=== PATIENT | male | born 1970 | race Caucasian/White ===

== ENCOUNTER → 2018-08-11 | Outpatient (REF) | payer OTHER ==
[2018-08-11 16:46] LABS: HEMATOCRIT 47.8 % (42.0-52.0); HEMOGLOBIN 15.8 g/dl (13.5-17.5); MEAN CORPUSCULAR HEMOGLOBIN 31.7 pg (27.0-33.0); MEAN CORPUSCULAR HGB CONC 33.1 g/dl (32.0-36.5); PLATELET COUNT, AUTOMATED 379 10^3/uL (150-450); RED BLOOD COUNT 4.98 10^6/uL (4.30-6.10)
[2018-08-11 16:57] LABS: ALBUMIN 4.4 GM/DL (3.2-5.2); ALT/SGPT 21 U/L (12-78); BILIRUBIN,TOTAL 0.4 MG/DL (0.2-1.0); BLOOD UREA NITROGEN 11 MG/DL (7-18); CALCIUM LEVEL 9.6 MG/DL (8.5-10.1); CARBON DIOXIDE LEVEL 30 MEQ/L (21-32); CHLORIDE LEVEL 104 MEQ/L (98-107); CHOLESTEROL LEVEL 254 MG/DL (<200); CHOLESTEROL RISK RATIO 6.047 (<5); CREATININE FOR GFR 1.24 MG/DL (0.70-1.30); GLOMERULAR FILTRATION RATE > 60.0 (>60); GLUCOSE, FASTING 86 MG/DL (70-100); HDL CHOLESTEROL 42 MG/DL (>40); LDL CHOLESTEROL 189 MG/DL (<100); NON-HDL-C 212 MG/DL; POTASSIUM SERUM 4.4 MEQ/L (3.5-5.1); SODIUM LEVEL 139 MEQ/L (136-145); THYROID STIMULATING HORMONE 0.652 uIU/ML (0.358-3.740); TOTAL PROTEIN 7.8 GM/DL (6.4-8.2); TRIGLYCERIDES LEVEL 117 MG/DL (<150)
[2018-08-11 16:58] LABS: TOTAL 25(OH) VITAMIN D 24.1 NG/ML (30.0-100.0)
== END ==
LOC: M SFHCCLAY 11:50
PROVIDERS: ATTEND Nurse Practitioner Family
DX: F32.9 Major depressive disorder, single episode, unspecified (principal); Z13.6 Encounter for screening for cardiovascular disorders

== ENCOUNTER → 2019-05-15 | Outpatient (REF) | payer OTHER ==
[2019-05-15 17:14] LABS: HEMATOCRIT 45.9 % (42.0-52.0); HEMOGLOBIN 15.3 g/dl (13.5-17.5); MEAN CORPUSCULAR HEMOGLOBIN 31.7 pg (27.0-33.0); MEAN CORPUSCULAR HGB CONC 33.3 g/dl (32.0-36.5); MEAN CORPUSCULAR VOLUME 95.2 fl (80.0-96.0); PLATELET COUNT, AUTOMATED 355 10^3/uL (150-450); RED BLOOD COUNT 4.82 10^6/uL (4.30-6.10); WHITE BLOOD COUNT 9.5 10^3/uL (4.0-10.0)
[2019-05-15 17:19] LABS: ALBUMIN 4.4 GM/DL (3.2-5.2); ALT/SGPT 23 U/L (12-78); BILIRUBIN,TOTAL 0.2 MG/DL (0.2-1.0); BLOOD UREA NITROGEN 12 MG/DL (7-18); CALCIUM LEVEL 9.8 MG/DL (8.5-10.1); CARBON DIOXIDE LEVEL 30 MEQ/L (21-32); CHLORIDE LEVEL 104 MEQ/L (98-107); CREATININE FOR GFR 1.14 MG/DL (0.70-1.30); GLOMERULAR FILTRATION RATE > 60.0 (>60); GLUCOSE, FASTING 80 MG/DL (70-100); POTASSIUM SERUM 4.3 MEQ/L (3.5-5.1); SODIUM LEVEL 137 MEQ/L (136-145); TOTAL 25(OH) VITAMIN D 19.9 NG/ML (30.0-100.0); TOTAL PROTEIN 8.3 GM/DL (6.4-8.2)
== END ==
LOC: M SFHCCLAY 10:15
PROVIDERS: ATTEND Nurse Practitioner Family
DX: K21.9 Gastro-esophageal reflux disease without esophagitis (principal); F41.9 Anxiety disorder, unspecified; E55.9 Vitamin D deficiency, unspecified
CPT/HCPCS: 80053; 82306; 84443; 85027; G0463

== ENCOUNTER → 2019-05-15 | Outpatient (CLI) | payer OTHER ==
--- NOTE | 2019-05-15 11:11 | REP ---
Chest x-ray: Two views. History: Weight loss . Comparison study: No comparison study . Findings: The lungs are well inflated and free of infiltrate. The pleural angles are sharp. The heart size is normal. Pulmonary vasculature is not increased. No significant bony abnormality is seen. Impression: Negative chest x-ray. Electronically Signed by Kevin Sanches MD 05/15/2019 11:03 A
== END ==
LOC: M CLY 10:38
PROVIDERS: ATTEND Nurse Practitioner Family
DX: R63.4 Abnormal weight loss (principal)

== ENCOUNTER → 2019-07-22 | Outpatient (CLI) | payer OTHER ==
[~2019-07-22] MED LIST: D200CAP2 PO; FLOM0.4C39 PO; OMEP40CA97 PO
== END ==
LOC: M LABSMTC 08:54
PROVIDERS: ATTEND Anesthesiology
DX: Z01.812 Encounter for preprocedural laboratory examination (principal); Z11.59 Encounter for screening for other viral diseases

== ENCOUNTER 2019-07-25 11:18 | Day surgery (SDC) | payer OTHER ==
[~2019-07-25] VITALS: Ht 170.2 cm; Wt 60.2 kg
[~2019-07-25 11:18] MED LIST changes: +NS 1,000 ML IV ONE
[2019-07-25] MEDS ORDERED: propofoL 200 MG/20 ML VIAL As Ordered ONE ×2 (12:45→14:07)
[2019-07-25] MEDS ORDERED: fentaNYL 100 MCG/2 ML INJECTION (J3010) As Ordered ONE (12:45)
[2019-07-25] MEDS ORDERED: LIDOCAINE 2% 100MG/5ML SDV (FOR ANES.) As Ordered ONE (12:45)
--- NOTE | 2019-07-25 14:12 | ROOR ---
Patient Name: Roel Jarrell Procedure Date: 07/25/2019 1:32 PM Date of : 1970 Age: 49 Room: [facility] Gender: Male Note Status: Finalized Procedure: Upper GI endoscopy Indications: Weight loss Providers: DO Martin Hernandez MD: Deborah Squires NP Requesting Provider: Medicines: Propofol per Anesthesia Complications: No immediate complications. Procedure: Pre-Anesthesia Assessment: - Prior to the procedure, a History and Physical was performed, and patient medications and allergies were reviewed. The patient is competent. The risks and benefits of the procedure and the sedation options and risks were discussed with the patient. All questions were answered and informed consent was obtained. Patient identification and proposed procedure were verified by the physician, the nurse, the coordinator hotels and the mobile home technician in the endoscopy suite. Mental Status Examination: alert and oriented. Airway Examination: normal oropharyngeal airway and neck mobility. Respiratory Examination: clear to auscultation. CV Examination: normal. Prophylactic Antibiotics: The patient does not require prophylactic antibiotics. Prior Anticoagulants: The patient has taken no previous anticoagulant or antiplatelet agents. ASA Grade Assessment: II - A patient with mild systemic disease. After reviewing the risks and benefits, the patient was deemed in satisfactory condition to undergo the procedure. The anesthesia plan was to use monitored anesthesia care (MAC). Immediately prior to administration of medications, the patient was re-assessed for adequacy to receive sedatives. The heart rate, respiratory rate, oxygen saturations, blood pressure, adequacy of pulmonary ventilation, and response to care were monitored throughout the procedure. The physical status of the patient was re-assessed after the procedure. The Endoscope was introduced through the mouth, and advanced to the second part of duodenum. The upper GI endoscopy was accomplished without difficulty. The patient tolerated the procedure well. Findings: The exam was otherwise without abnormality. Impression: - The examination was otherwise normal. - No specimens collected. Recommendation: - Patient has a contact number available for emergencies. The signs and symptoms of potential delayed complications were discussed with the patient. Return to normal activities tomorrow. Written discharge instructions were provided to the patient. - Return to my office PRN. Dany Solano DO 07/25/2019 2:12:43 PM Electronically signed by Dany Solano DO Number of Addenda: 0 Note Initiated On: 07/25/2019 1:32 PM Estimated Blood Loss: Estimated blood loss: none.
--- NOTE | 2019-07-25 14:16 | ROOR ---
Patient Name: Roel Jarrell Procedure Date: 07/25/2019 1:32 PM Date of : 1970 Age: 49 Room: [facility] Gender: Male Note Status: Finalized Procedure: Colonoscopy Indications: Weight loss Providers: DO Martin Hernandez MD: Deborah Squires NP Requesting Provider: Medicines: Propofol per Anesthesia Complications: No immediate complications. Procedure: Pre-Anesthesia Assessment: - Prior to the procedure, a History and Physical was performed, and patient medications and allergies were reviewed. The patient is competent. The risks and benefits of the procedure and the sedation options and risks were discussed with the patient. All questions were answered and informed consent was obtained. Patient identification and proposed procedure were verified by the physician, the nurse, the embalmer assistant and the pyrotechnician in the endoscopy suite. Mental Status Examination: alert and oriented. Airway Examination: normal oropharyngeal airway and neck mobility. Respiratory Examination: clear to auscultation. CV Examination: normal. Prophylactic Antibiotics: The patient does not require prophylactic antibiotics. Prior Anticoagulants: The patient has taken no previous anticoagulant or antiplatelet agents. ASA Grade Assessment: II - A patient with mild systemic disease. After reviewing the risks and benefits, the patient was deemed in satisfactory condition to undergo the procedure. The anesthesia plan was to use monitored anesthesia care (MAC). Immediately prior to administration of medications, the patient was re-assessed for adequacy to receive sedatives. The heart rate, respiratory rate, oxygen saturations, blood pressure, adequacy of pulmonary ventilation, and response to care were monitored throughout the procedure. The physical status of the patient was re-assessed after the procedure. The Colonoscope was introduced through the anus and advanced to the cecum, identified by appendiceal orifice and ileocecal valve. The colonoscopy was performed without difficulty. The patient tolerated the procedure well. Findings: Multiple medium-mouthed diverticula were found in the sigmoid colon. A 20 mm polyp was found in the sigmoid colon. The polyp was pedunculated. The polyp was removed with a hot snare. Resection and retrieval were complete. Estimated blood loss was minimal. The exam was otherwise without abnormality. Impression: - Diverticulosis in the sigmoid colon. - One 20 mm polyp in the sigmoid colon, removed with a hot snare. Resected and retrieved. - The examination was otherwise normal. Recommendation: - Patient has a contact number available for emergencies. The signs and symptoms of potential delayed complications were discussed with the patient. Return to normal activities tomorrow. Written discharge instructions were provided to the patient. - Repeat colonoscopy in 3 - 5 years for surveillance based on pathology results. - Return to my office at appointment to be scheduled. - Await pathology results. Dany Solano DO 07/25/2019 2:15:44 PM Electronically signed by Dany Solano DO Number of Addenda: 0 Note Initiated On: 07/25/2019 1:32 PM Estimated Blood Loss: Estimated blood loss was minimal.
[2019-07-25 14:45] VITALS: BP 130/77
== END 2019-07-25 15:00 | disposition home or self-care (01) ==
LOC: M OPP 11:18
PROVIDERS: ATTEND Surgery
DX: K63.5 Polyp of colon (principal); K57.30 Diverticulosis of large intestine without perforation or abscess without bleeding; R63.4 Abnormal weight loss; F17.210 Nicotine dependence, cigarettes, uncomplicated; Z79.899 Other long term (current) drug therapy; Z88.8 Allergy status to other drugs, medicaments and biological substances
CPT/HCPCS: 43235; 45385; 88305; J3010

== ENCOUNTER 2020-04-10 07:35 | Emergency (ER) | payer OTHER ==
[~2020-04-10] VITALS: Ht 167.6 cm; Wt 65.9 kg
[~2020-04-10 07:35] MED LIST changes: -NS 1,000 ML IV ONE
--- OUTSIDE RECORDS SUMMARY | 2020-04-10 07:40 | CCD ---
Author Author [facility] Syst ems Organization [facility] ems Address Unknown Phone Unavailable Care Team Providers Care [employer] Director Name Role Phone Raul Joe Unavailable PROBLEMS Type Condition ICD9-CM Code [id number] Code Onset Dates Condition S tatus SNOMED Code Notes Problem Sleep apnea, unspecified type G47.30 Active 73 899222 Problem Enlarged prostate N40.0 Active 213766034 Problem Gastroesophageal reflux disease, esophagitis pre sence not specified K21.9 Active 137689012 Problem Urinary frequency R35.0 Active 425189229 Problem Hyperlipidemia, unspecified E78.5 Active 3705 50612 Problem Depression, unspecified depression type F32.9 Active 40512032 Problem Smoker F17.200 Active 29818761 Problem Erectile dysfunction, unspecified erectile dysfunction typ e N52.9 Active 631362543 Problem Panic attacks F41.0 Active 035468356 Problem Anxiety F41.9 Active 24729487 Problem Vitamin D deficiency E55.9 Active 96332566 Problem Mixed hyperlipidemia E78.2 Active 300685087 ALLERGIES Allergen (clinical drug ingredient) Drug/Non Drug Allergy do cumented on EMR Reaction Allergy Type Onset Date Status varenicline Chantix(NDC Code:[address]-34) increased anxiety Drug Al lergy Active Wellbutrin increased anxiety Drug Allergy Activ e sertraline Zoloft(NDC Code:[address]-88) incrased sadness Drug Aller gy Active ENCOUNTERS from 1970 to 2020-03-28 Encounter Location Date Provider Diagnosis [address] [address] Feb Joe Carter Anxiety F41.9 IMMUNIZATIONS No Information SOCIAL HISTORY Tobacco Use: Social History Observation Description Date Details (start date - stop date) Current Smoker Sex Assigned At : Social History Observation Description Sex Assigned At Unknown Audit Question Answer Notes Total Score: 1 Interpretation: Alcohol Education Drug and Alcohol Question Answer Notes Total Score: 1 Interpretation: Low level Tobacco Use: Question Answer Notes Are you a: current smoker Patient counseled on the dangers of tobacco use and urged to quit: 01/04/2020 How many cigarettes a day do you smoke? 11-20 Are you interested in quitting? Ready to quit Counseled the patient on tobacco use, cessation provided 07/2019 REASON FOR REFERRAL No Information VITAL SIGNS No information MEDICATIONS Medication SIG (Take, Route, Frequency, Duration) Notes Start Da te End Date Status Xanax 0.25 MG 1-2tablet Orally four times daily as nee ded, MDD=8 for 10 day(s) Apr, Active Drisdol 1.25 MG (17610 UT) 1 capsule Orally weekly May, Active Omeprazole 40 MG 1 capsule 30 minutes before morning meal Orally Once a day for 90 Active Wellbutrin SR 100 MG 1 tablet in the morning Orally bid for 30 d ay(s) Dec, Active Viagra 100 mG 1 tablet as needed Orally 1 hour before intercou rse Jul, Active Flomax 0.4 MG 1 capsule 30 minutes after t he same meal each day Orally Once a day for 90 Active Cialis 20 MG 1 tablet Orally as directed June, Active PROCEDURES No Information RESULTS No Results REASON FOR VISIT Refill MEDICAL (GENERAL) HISTORY Type Description Date Medical History Hyperlipidemia Medical History PTSD Medical History depression Medical History panic attacks Medical History anxiety Medical History sleep apnea on CPAP from the [place] Medical History GERD Medical History and hiatal hernia Medical History history of gastric ulcers at age 23 Medical History enlarged prostate, [place] urology Surgical History Vasectomy around 5 years ago Surgical History Right shoulder reconstruction surgery Hospitalization History No know Hospitalization history Goals Section No Information Health Concerns No Information MEDICAL EQUIPMENT No Information MENTAL STATUS No Information FUNCTIONAL STATUS No Information ASSESSMENTS Encounter Date Diagnosis Assessment Notes Treatment Notes Treatm ent Clinical Notes Feb, Anxiety (ICD-10 - F41.9) PLAN OF TREATMENT Medication Medication Name Sig Start Date Stop Date Xanax 0.25 MG 1-2tablet Orally four times daily as nee ded, MDD=8 for 10 day(s) Apr, Viagra 100 mG 1 tablet as needed Orally 1 hour before intercou rse Jul, Flomax 0.4 MG 1 capsule 30 minutes after t he same meal each day Orally Once a day for 90 Wellbutrin SR 100 MG 1 tablet in the morning Orally bid for 30 day(s) Dec, Drisdol 1.25 MG (00046 UT) 1 capsule Orally weekly May, Omeprazole 40 MG 1 capsule 30 minutes before morning meal Orally Once a day for 90 Cialis 20 MG 1 tablet Orally as directed June, Insurance Providers Payer Name Payer Address Payer Phone Insured Name Patient Relati onship to Insured Coverage Start Date Coverage End Date [facility] [employer] [address] [address] [place] [address] YOANA BOYD
--- OUTSIDE RECORDS SUMMARY | 2020-04-10 07:40 | CCD ---
Author Author [facility] Syst ems Organization [facility] ems Address Unknown Phone Unavailable Care Team Providers Care Neuropsychology Director Name Role Phone ShawToddja Unavailable PROBLEMS Type Condition ICD9-CM Code [id number] Code Onset Dates Condition S tatus SNOMED Code Notes Problem Sleep apnea, unspecified type G47.30 Active 73 603671 Problem Enlarged prostate N40.0 Active 421082689 Problem Gastroesophageal reflux disease, esophagitis pre sence not specified K21.9 Active 205743667 Problem Urinary frequency R35.0 Active 120763731 Problem Hyperlipidemia, unspecified E78.5 Active 3705 7635575 Problem Depression, unspecified depression type F32.9 Active 41315273 Problem Smoker F17.200 Active 70431521 Problem Erectile dysfunction, unspecified erectile dysfunction typ e N52.9 Active 232785636 Problem Panic attacks F41.0 Active 273890530 Problem Anxiety F41.9 Active 48500167 Problem Vitamin D deficiency E55.9 Active 10483658 Problem Mixed hyperlipidemia E78.2 Active 117921468 ALLERGIES Allergen (clinical drug ingredient) Drug/Non Drug Allergy do cumented on EMR Reaction Allergy Type Onset Date Status varenicline Chantix(ND Code:[address]-22) increased anxiety Drug Al lergy Active Wellbutrin increased anxiety Drug Allergy Activ e sertraline Zoloft(ND Code:[address]-75) incrased sadness Drug Aller gy Active ENCOUNTERS from 1970 to 2020-01-20 Encounter Location Date Provider Diagnosis [facility] [address] [place] [address] Dec Deborah Squires Depression, unspecified depression type F32.9 ; Anxiety F41.9 ; Panic attacks F41.0 ; Gastroesophageal reflux disease, esophagitis presence not specified K21.9 ; Vitamin D deficiency E55.9 ; Hyperlipidemia, unspecified E78.5 and Smoker F17.200 IMMUNIZATIONS No Information SOCIAL HISTORY Tobacco Use: [...] many cigarettes a day do you smoke? 11- Are you interested in quitting? Ready to quit Counseled the patient on tobacco use, cessation provided 07/2019 REASON FOR REFERRAL No Information VITAL SIGNS Weight 141 lbs Dec, Height 5'7" in Dec, BMI 22.08 kg/m2 Dec, Heart Rate 76 /min Dec, Respiratory Rate 20 /min Dec, Temperature 97.8 degrees Fahrenheit Dec, Oximetry 98%ra Dec, Blood pressure systolic 117 mm Hg Dec, Blood pressure diastolic 75 mm Hg Dec, MEDICATIONS Medication SIG (Take, Route, Frequency, Duration) Notes Start Da te End Date Status Flomax 0.4 MG 1 capsule 30 minutes after t he same meal each day Orally Once a day Jul, Active Omeprazole 40 MG 1 capsule 30 minutes before morning meal Orally Once a day Apr, Active Drisdol 1.25 MG (25076 UT) 1 capsule Orally weekly May, Active Wellbutrin SR 100 MG 1 tablet in the morning Orally bid for 30 d ay(s) Dec, Active Viagra 100 mG 1 tablet as needed Orally 1 hour before intercou rse Jul, Active Xanax 0.25 MG 1-2tablet Orally four times daily as nee ded, MDD=8 for 10 day(s) Apr, Active Cialis 20 MG 1 tablet Orally as directed June, Active PROCEDURES No Information RESULTS No Results REASON FOR VISIT 6 MONTH CK UP MEDICAL (GENERAL) HISTORY Type Description Date Medical History Hyperlipidemia Medical History PTSD Medical History depression Medical History panic attacks Medical History anxiety Medical History sleep apnea on CPAP from the [place] Medical History GERD Medical History and hiatal hernia Medical History history of gastric ulcers at age 23 Medical History enlarged prostate, [place] urology Surgical History Vasectomy around 5 years ago Surgical History Right shoulder reconstruction surgery Hospitalization History No know Hospitalization history Goals Section No Information Health Concerns No Information MEDICAL EQUIPMENT No Information MENTAL STATUS No Information FUNCTIONAL STATUS No Information ASSESSMENTS Encounter Date Diagnosis Assessment Notes Treatment Notes Treatm ent Clinical Notes Dec, Depression, unspecified depression type (ICD-10 - F32.9) Dec, Anxiety (ICD-10 - F41.9) Dec, Panic attacks (ICD-10 - F41.0) Dec, Gastroesophageal reflux dise ase, esophagitis presence not specified (ICD-10 - K21.9) Dec, Vitamin D deficiency (ICD-10 - E55.9) Dec, Hyperlipidemia, unspecified (ICD-10 - E78.5) Dec, Smoker (ICD-10 - F17.200) Dec, Other Treatment options discussed with patient., pt provided with info on admin and side effects of meds prescribed and verbalized understanding of same. Reference #: [id number] PLAN OF TREATMENT Medication Medication Name Sig Start Date Stop Date Flomax 0.4 MG 1 capsule 30 minutes after t he same meal each day Orally Once a day Jul, Viagra 100 mG 1 tablet as needed Orally 1 hour before intercou rse Jul, Xanax 0.25 MG 1-2tablet Orally four times daily as nee ded, MDD=8 for 10 day(s) Apr, Wellbutrin SR 100 MG 1 tablet in the morning Orally bid for 30 day(s) Dec, Omeprazole 40 MG 1 capsule 30 minutes before morning meal Orally Once a day Apr, Drisdol 1.25 MG (43345 UT) 1 capsule Orally weekly May, Cialis 20 MG 1 tablet Orally as directed June, Next Appt Details 4 Weeks, 6 Weeks Reason: Provider Name:Deborah Squires, 2020-03-05 04:00:00 PM, [address] [place], [place], [address], Insurance Providers Payer Name Payer Address Payer Phone Insured Name Patient Relati onship to Insured Coverage Start Date Coverage End Date [facility] [address] [facility] [id number] YOANA BOYD
--- OUTSIDE RECORDS SUMMARY | 2020-04-10 07:40 | CCD ---
Author Author [facility] Syst ems Organization [facility] ems Address Unknown Phone Unavailable Care Team Providers Care Director Of Business Systems Name Role Phone Shaw Deborah Unavailable PROBLEMS Type Condition ICD9-CM Code [id number] Code Onset Dates Condition S tatus SNOMED Code Notes Problem Sleep apnea, unspecified type G47.30 Active 73 679607 Problem Enlarged prostate N40.0 Active 649875294 Problem Gastroesophageal reflux disease, esophagitis pre sence not specified K21.9 Active 667105230 Problem Urinary frequency R35.0 Active 214252125 Problem Hyperlipidemia, unspecified E78.5 Active 3708 03305 Problem Depression, unspecified depression type F32.9 Active 84933411 Problem Smoker F17.200 Active 93240148 Problem Erectile dysfunction, unspecified erectile dysfunction typ e N52.9 Active 120629202 Problem Panic attacks F41.0 Active 284119716 Problem Anxiety F41.9 Active 56718039 Problem Vitamin D deficiency E55.9 Active 85736535 Problem Mixed hyperlipidemia E78.2 Active 668331029 ALLERGIES Allergen (clinical drug ingredient) Drug/Non Drug Allergy do cumented on EMR Reaction Allergy Type Onset Date Status varenicline Chantix(ND Code:[address]-18) increased anxiety Drug Al lergy Active Wellbutrin increased anxiety Drug Allergy Activ e sertraline Zoloft(ND Code:[address]-34) incrased sadness Drug Aller gy Active ENCOUNTERS from 1970 to 2020-03-28 Encounter Location Date Provider Diagnosis [facility] [address] [place] [address] Feb Deborah Squires IMMUNIZATIONS No Information SOCIAL HISTORY Tobacco Use: [...] 10 day(s) Apr, Active Drisdol 1.25 MG (98242 UT) 1 capsule Orally weekly May, Active [...] History sleep apnea on CPAP from the [place] Medical History GERD Medical History and hiatal hernia Medical History history of gastric ulcers at age 23 Medical History enlarged prostate, [place] urology Surgical History Vasectomy around 5 years ago Surgical History Right shoulder reconstruction surgery Hospitalization History No know Hospitalization history Goals Section No Information Health Concerns No Information MEDICAL EQUIPMENT No Information MENTAL STATUS No Information FUNCTIONAL STATUS No Information ASSESSMENTS No Information PLAN OF TREATMENT Medication Medication Name Sig [...] for 30 day(s) Dec, Drisdol 1.25 MG (68081 UT) 1 capsule Orally weekly May, Omeprazole 40 MG 1 capsule 30 minutes before morning meal Orally Once a day for 90 Cialis 20 MG 1 tablet Orally as directed June, Insurance Providers Payer Name Payer Address Payer Phone Insured Name Patient Relati onship to Insured Coverage Start Date Coverage End Date [facility] [address] [facility] [id number] YOANA BOYD
--- OUTSIDE RECORDS SUMMARY | 2020-04-10 07:40 | CCD ---
Author Author [facility] Syst ems Organization [facility] ems Address Unknown Phone Unavailable Care Team Providers Care Hitting Coach Name Role Phone ShawToddja Unavailable PROBLEMS Type Condition ICD9-CM Code [id number] Code Onset Dates Condition S tatus SNOMED Code Notes Problem Sleep apnea, unspecified type G47.30 Active 73 017037 Problem Enlarged prostate N40.0 Active 878363429 Problem Gastroesophageal reflux disease, esophagitis pre sence not specified K21.9 Active 549089119 Problem Urinary frequency R35.0 Active 019102415 Problem Hyperlipidemia, unspecified E78.5 Active 3707 34063 Problem Depression, unspecified depression type F32.9 Active 22566749 Problem Smoker F17.200 Active 45001706 Problem Erectile dysfunction, unspecified erectile dysfunction typ e N52.9 Active 344186925 Problem Panic attacks F41.0 Active 417429866 Problem Anxiety F41.9 Active 30120362 Problem Vitamin D deficiency E55.9 Active 38091917 Problem Mixed hyperlipidemia E78.2 Active 156173101 ALLERGIES Allergen (clinical drug ingredient) Drug/Non Drug Allergy do cumented on EMR Reaction Allergy Type Onset Date Status varenicline Chantix(ND Code:[address]-96) increased anxiety Drug Al lergy Active Wellbutrin increased anxiety Drug Allergy Activ e sertraline Zoloft(ND Code:[address]-27) incrased sadness Drug Aller gy Active ENCOUNTERS from 1970 to 2020-02-27 Encounter Location Date Provider Diagnosis [facility] [address] [place] [address] Jan Deborah Squires Anxiety F41.9 IMMUNIZATIONS No Information SOCIAL HISTORY [...] Notes Start Da te End Date Status Wellbutrin SR 100 MG 1 tablet in the morning Orally bid for 30 d ay(s) Dec, Active Cialis 20 MG 1 tablet Orally as directed June, Active Drisdol 1.25 MG (17861 UT) 1 capsule Orally weekly May, Active Flomax 0.4 MG 1 capsule 30 minutes after t he same meal each day Orally Once a day for 90 Active Viagra 100 mG 1 tablet as needed Orally 1 hour before intercou rse Jul, Active Omeprazole 40 MG 1 capsule 30 minutes before morning meal Orally Once a day for 90 Active Xanax 0.25 MG 1-2tablet Orally four times daily as nee ded, MDD=8 for 10 day(s) Apr, Active PROCEDURES No Information RESULTS No Results REASON FOR VISIT Good Morning. MEDICAL (GENERAL) HISTORY Type Description Date Medical History Hyperlipidemia Medical History PTSD Medical History depression Medical History panic attacks Medical History anxiety Medical History sleep apnea on CPAP from the [place] Medical History GERD Medical History and hiatal hernia Medical History history of gastric ulcers at age 23 Medical History enlarged prostate, [place] urology Surgical History Vasectomy around 5 years ago Surgical History Right shoulder reconstruction surgery Hospitalization History No know Hospitalization history Goals Section No Information Health Concerns No Information MEDICAL EQUIPMENT No Information MENTAL STATUS No Information FUNCTIONAL STATUS No Information ASSESSMENTS Encounter Date Diagnosis Assessment Notes Treatment Notes Treatm ent Clinical Notes Jan, Anxiety (ICD-10 - F41.9) PLAN OF TREATMENT Medication Medication Name Sig Start Date Stop Date Wellbutrin SR 100 MG 1 tablet in the morning Orally bid for 30 day(s) Dec, Viagra 100 mG 1 tablet as needed Orally 1 hour before intercou rse Jul, Omeprazole 40 MG 1 capsule 30 minutes before morning meal Orally Once a day for 90 Flomax 0.4 MG 1 capsule 30 minutes after t he same meal each day Orally Once a day for 90 Cialis 20 MG 1 tablet Orally as directed June, Drisdol 1.25 MG (23128 UT) 1 capsule Orally weekly May, Xanax 0.25 MG 1-2tablet Orally four times daily as nee ded, MDD=8 for 10 day(s) Apr, Next Appt Details Provider Name:Deborah Parra Shaw, 2020-03-05 04:00:00 PM, [address] , [place], [address], Insurance Providers Payer Name Payer Address Payer Phone Insured Name Patient Relati onship to Insured Coverage Start Date Coverage End Date [facility] [address] [place] [id number] YOANA BOYD
--- OUTSIDE RECORDS SUMMARY | 2020-04-10 07:40 | CCD ---
Author Author 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 Name Role Phone Shaw Deborah Unavailable PROBLEMS Type Condition ICD9-CM Code SMS44-ER Code Onset Dates Condition S tatus SNOMED Code Notes Problem Sleep apnea, unspecified type G47.30 Active 73 029160 Problem Enlarged prostate N40.0 Active 083545971 Problem Gastroesophageal reflux disease, esophagitis pre sence not specified K21.9 Active 447543997 Problem Urinary frequency R35.0 Active 839338538 Problem Hyperlipidemia, unspecified E78.5 Active 3706 99107 Problem Depression, unspecified depression type F32.9 Active 93003030 Problem Smoker F17.200 Active 59206686 Problem Erectile dysfunction, unspecified erectile dysfunction typ e N52.9 Active 348745532 Problem Panic attacks F41.0 Active 630333464 Problem Anxiety F41.9 Active 76604730 Problem Vitamin D deficiency E55.9 Active 28963551 Problem Mixed hyperlipidemia E78.2 Active 774692379 ALLERGIES Allergen (clinical drug ingredient) Drug/Non Drug Allergy do cumented on EMR Reaction Allergy Type Onset Date Status varenicline Chantix(NDC Code:[address]-77) increased anxiety Drug Al lergy Active Wellbutrin increased anxiety Drug Allergy Activ e sertraline Zoloft(ND Code:[address]-75) incrased sadness Drug Aller gy Active ENCOUNTERS from 1970 to 2020-03-04 Encounter Location Date Provider Diagnosis [facility] [address] [place] [address] Feb Deborah Squires IMMUNIZATIONS No Information SOCIAL [...] as directed June, Active Drisdol 1.25 MG (55585 UT) 1 capsule Orally weekly May, Active [...] Information RESULTS No Results REASON FOR VISIT 05 March Appointment. MEDICAL (GENERAL) HISTORY Type Description Date Medical History Hyperlipidemia Medical History PTSD Medical History depression Medical History panic attacks Medical History anxiety Medical History sleep ap[place] Medical History GERD Medical History and hiatal hernia Medical History history of gastric ulcers at age 23 Medical History enlarged prostate, [place] [facility] Surgical History Vasectomy around 5 years [...] Orally as directed June, Drisdol 1.25 MG (02498 UT) 1 capsule Orally weekly May, Xanax 0.25 MG 1-2tablet Orally four times daily as nee ded, MDD=8 for 10 day(s) Apr, Insurance Providers Payer Name Payer Address Payer Phone Insured Name Patient Relati onship to Insured Coverage Start Date Coverage End Date [facility] [id number] [facility] [id number] [place] BOYD self
--- OUTSIDE RECORDS SUMMARY | 2020-04-10 07:40 | CCD ---
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 Name Role Phone Indra SMITH Unavailable Unavailable Indra SMITH PA Unavailable Unavailable LUISIndra DOTY PA Unavailable Unavailable LUISIndra DOTY PA Unavailable Unavailable Indra SMITH PA Unavailable Unavailable Indra SMITH PA Unavailable Unavailable Indra SMITH PA Unavailable Unavailable Indra SMITH PA Unavailable Unavailable Indra SMITH PA Unavailable Unavailable LUISIndra DOTY PA Unavailable Unavailable LUISIndra DOTY PA Unavailable Unavailable DENY, GARCIA PA Unavailable Unavailable DENY, GARCIA PA Unavailable Unavailable DENY, GARCIA PA Unavailable Unavailable DENY, GARCIA PA Unavailable Unavailable DENY, GARCIA PA Unavailable Unavailable DENY, GARCIA PA Unavailable Unavailable DENY, GARCIA PA Unavailable Unavailable DENY, GARCIA PA Unavailable Unavailable DENY, GARCIA PA Unavailable Unavailable DENY, GARCIA PA Unavailable Unavailable DENY, GARCIA PA Unavailable Unavailable DENY, GARCIA PA Unavailable Unavailable DENY, GARCIA PA Unavailable Unavailable DENY, GARCIA PA Unavailable Unavailable DENY, GARCIA PA Unavailable Unavailable Re-disclosure Warning The records that you are about to access may contain information from federally-assisted alcohol or drug abuse programs. If such information is present, then the following federally mandated warning applies: This information has been disclosed to you from records protected by federal confidentiality rules (42 CFR part 2). The federal rules prohibit you from making any further disclosure of this information unless further disclosure is expressly permitted by the written consent of the person to whom it pertains or as otherwise permitted by 42 CFR part 2. A general authorization for the release of medical or other information is NOT sufficient for this purpose. The Federal rules restrict any use of the information to criminally investigate or prosecute any alcohol or drug abuse patient.The records that you are about to access may contain highly sensitive health information, the redisclosure of which is protected by Article 27-F of the [facility] Public Health law. If you continue you may have access to information: Regarding HIV / AIDS; Provided by facilities licensed or operated by the [facility] Office of Mental Health; or Provided by the [facility] Office for People With Developmental Disabilities. If such information is present, then the following [facility] mandated warning applies: This information has been disclosed to you from confidential records which are protected by state law. State law prohibits you from making any further disclosure of this information without the specific written consent of the person to whom it pertains, or as otherwise permitted by law. Any unauthorized further disclosure in violation of state law may result in a fine or detention sentence or both. A general authorization for the release of medical or other information is NOT sufficient authorization for further disc losure. Allergies and Adverse Reactions Type Description Substance Reaction Status Data Source(s ) Drug allergy Zoloft Sertraline incrased sadness Active eCW1 ([facility]) Drug allergy Chantix varenicline increased anxiety Active eCW 1 ([facility]) Wellbutrin Wellbutrin Wellbutrin increased anxiety Active eCW1 ( [facility]) Wellbutrin Wellbutrin Wellbutrin increased anxiety Active eCW1 ( [facility]) Wellbutrin Wellbutrin Wellbutrin increased anxiety Active eCW1 ( [facility]) Encounters Encounter Providers Location Date Indications Data Source(s ) Emergency Attender: GARCIA BARCLAY MS [facility] 04/10/2020 05:59:00 AM EST - 04/10/2020 05:59:00 AM EST [facility] [place] [address] [facility] [address] 03/28/2020 12:00:00 AM EST eCW1 ([facility]) [place] [address] [address] 03/28/2020 12:00:00 AM EST eCW1 ([facility]) [place] [address] [facility] [address] 03/03/2020 12:00:00 AM EST eCW1 ([facility] [place] [address] [facility] [address] 02/27/2020 12:00:00 AM EST eCW1 ([facility]) [place] [address] [facility] [address] 01/04/2020 12:00:00 AM EST eCW1 ([facility]) [place] [address] [facility] [address] 11/20/2019 12:00:00 AM EDT eCW1 ([facility]) [place] [address] [facility] [address] 08/02/2019 12:00:00 AM EDT eCW1 ([facility]) [facility] [address] [facility] [address] 07/04/2019 12:00:00 AM EDT [facility]CW1 [facility] Outpatient Referrer: ANNE-MARIE GARZA 06/09/2019 07:15:00 AM EDT [facility] [address] [facility] [address] 06/06/2019 12:00:00 AM EDT eCW1 ([facility]) [facility] [address] [facility] [address] 06/06/2019 12:00:00 AM EDT eCW1 ([facility]) [facility] [address] [address] 05/30/2019 12:00:00 AM EDT eCW1 ([facility]) [address] [address] 05/29/2019 12:00:00 AM EDT eCW1 ([facility]) [address] [address] 05/29/2019 12:00:00 AM EDT eCW1 ([facility]) [facility] [address] [place] [address], [place] [address] 05/16/2019 12:00:00 AM EDT eCW1 ([facility]) [address] [address] 05/15/2019 12:00:00 AM EDT eCW1 ([facility]) Medications Medication Brand Name Start Date Product Form Dose Route Admi nistrative Instructions Pharmacy Instructions Status Indications Reaction Description Data Source(s) Alprazolam 0.25 MG Oral Tablet ALPRAZOLAM 03/28/2020 12:00:00 AM EST tablet 80 TAKE ONE TO TWO TABLETS BY MOUTH FOUR TIMES A DAY N EEDED MAX=8TABS/DAY TAKE ONE TO TWO TABLETS BY MOUTH FOUR TIMES A DAY NEEDED MAX=8TABS/DAY SOLD: 03/31/2020 [facility] Alprazolam 0.25 MG Oral Tablet ALPRAZOLAM 02/27/2020 12:00:00 AM EST tablet 80 TAKE 1-2 TABLETS BY MOUTH FOUR TIMES A DAY NEEDED M AX=8TABS/DAY TAKE 1-2 TABLETS BY MOUTH FOUR TIMES A DAY NEEDED MAX=8TABS/DAY SOLD: 03/03/2020 [facility] 40 mg 02/03/2020 12:00:00 AM EST capsule,delayed release (DR/EC) 90 TAKE ONE CAPSULE BY MOUTH EVERY MORNING 30 MINUTES BEFORE EATING TAKE ONE CAPSULE BY MOUTH EVERY MORNING 30 MINUTES BEFORE EATING SOLD: 03/03/2020 [facility] 0.4 mg 02/03/2020 12:00:00 AM EST capsule 90 TAKE ONE CAPSULE BY MOUTH EVERY DAY 30 MINUTES AFTER THE SME MEAL EACH DAY TAKE ONE CAPSULE BY MOUTH EVERY DAY 30 MINUTES AFTER THE SME MEAL EACH DAY SOLD: 03/03/2020 [facility] 100 mg 01/04/2020 12:00:00 AM EST tablet sustained-releas e 12 hr 60 TAKE ONE TABLET BY MOUTH TWICE A DAY TAKE ONE TABLET BY MOUTH TWICE A DAY SOLD: 01/05/2020 [facility] 20 mg 01/04/2020 12:00:00 AM EST tablet 10 TAKE ONE TABLET BY MOUTH DIRECTED TAKE ONE TABLET BY MOUTH DIRECTED SOLD: 02/02/2020 [facility] 12 HR Bupropion Hydrochloride 100 MG Ext ended Release Oral Tablet [Wellbutrin] Wellbutrin SR 100 MG Wellbutrin SR 100 MG 01/04/2020 12:00:00 AM EST 1.0 {tablet_in_the_morning} active Wellbutr in SR 100 MG eCW1 ([facility]) 20 mg 01/04/2020 12:00:00 AM EST tablet 10 TAKE ONE TABLET BY MOUTH DIRECTED TAKE ONE TABLET BY MOUTH DIRECTED SOLD: 01/05/2020 [facility] 12 HR Bupropion Hydrochloride 100 MG Ext ended Release Oral Tablet [Wellbutrin] Wellbutrin SR 100 MG Wellbutrin SR 100 MG 01/04/2020 12:00:00 AM EST 1.0 {tablet_in_the_morning} active Wellbutr in SR 100 MG eCW1 ([facility]) 12 HR Bupropion Hydrochloride 100 MG Ext ended Release Oral Tablet [Wellbutrin] Wellbutrin SR 100 MG Wellbutrin SR 100 MG 01/04/2020 12:00:00 AM EST 1.0 {tablet_in_the_morning} active Wellbutr in SR 100 MG eCW1 ([facility]) Alprazolam 0.25 MG Oral Tablet ALPRAZOLAM 01/04/2020 12:00:00 AM EST tablet 80 TAKE ONE TO TWO TABLETS BY MOUTH FOUR TIMES A DAY N EEDED MAX=8TABS/DAY TAKE ONE TO TWO TABLETS BY MOUTH FOUR TIMES A DAY NEEDED MAX=8TABS/DAY SOLD: 01/05/2020 [facility] 20 mg 01/04/2020 12:00:00 AM EST tablet 10 TAKE ONE TABLET BY MOUTH DIRECTED TAKE ONE TABLET BY MOUTH DIRECTED SOLD: 03/19/2020 [facility] 12 HR Bupropion Hydrochloride 100 MG Ext ended Release Oral Tablet [Wellbutrin] Wellbutrin SR 100 MG Wellbutrin SR 100 MG 01/04/2020 12:00:00 AM EST 1.0 {tablet_in_the_morning} active Wellbutr in SR 100 MG eCW1 ([facility]) 12 HR Bupropion Hydrochloride 100 MG Ext ended Release Oral Tablet [Wellbutrin] Wellbutrin SR 100 MG Wellbutrin SR 100 MG 01/04/2020 12:00:00 AM EST 1.0 {tablet_in_the_morning} active Wellbutr in SR 100 MG eCW1 ([facility]) Alprazolam 0.25 MG Oral Tablet ALPRAZOLAM 12/01/2019 12:00:00 AM EDT tablet 80 TAKE ONE TO TWO TABLETS BY MOUTH FOUR TIMES A DAY N EEDED MAX=8TABS/DAY TAKE ONE TO TWO TABLETS BY MOUTH FOUR TIMES A DAY NEEDED MAX=8TABS/DAY SOLD: 12/03/2019 [facility] Alprazolam 0.25 MG Oral Tablet ALPRAZOLAM 08/03/2019 12:00:00 AM EDT tablet 60 TAKE 1-2 TABLETS BY MOUTH FOUR TIMES A D AY NEEDED MAXIMUM DAILY DOSE = 6 TABLETS TAKE 1-2 TABLETS BY MOUTH FOUR TIMES A D AY NEEDED MAXIMUM DAILY DOSE = 6 TABLETS SOLD: 08/04/2019 [facility] 20 mg 07/30/2019 12:00:00 AM EDT tablet 6 TAKE 1 TABLET BY MOUTH DIRECTED TAKE 1 TABLET BY MOUTH DIRECTED SOLD: 10/09/2019 [facility] 20 mg 07/30/2019 12:00:00 AM EDT tablet 6 TAKE 1 TABLET BY MOUTH DIRECTED TAKE 1 TABLET BY MOUTH DIRECTED SOLD: 07/30/2019 [facility] 20 mg 07/30/2019 12:00:00 AM EDT tablet 6 TAKE 1 TABLET BY MOUTH DIRECTED TAKE 1 TABLET BY MOUTH DIRECTED SOLD: 11/27/2019 [facility] 20 mg 07/30/2019 12:00:00 AM EDT tablet 6 TAKE 1 TABLET BY MOUTH DIRECTED TAKE 1 TABLET BY MOUTH DIRECTED SOLD: 08/31/2019 [facility] 20 mg 07/30/2019 12:00:00 AM EDT tablet 6 TAKE 1 TABLET BY MOUTH DIRECTED TAKE 1 TABLET BY MOUTH DIRECTED SOLD: 11/02/2019 [facility] 17.5-3.13-1.6 gram 07/19/2019 12:00:00 AM EDT recon soln 354 USE DIRECTED BY PHYSICIAN USE DIRECTED BY PHYSICIAN SOLD: 07/20/2019 [facility] tadalafil 20 MG Oral Tablet [Cialis] Cialis 20 MG Cialis 20 MG 07/04/2019 12:00:00 AM EDT 1.0 {tablet} active Ci jenelle 20 MG eCW1 ([facility]) tadalafil 20 MG Oral Tablet [Cialis] Cialis 20 MG Cialis 20 MG 07/04/2019 12:00:00 AM EDT 1.0 {tablet} active Ci jenelle 20 MG eCW1 ([facility]) tadalafil 20 MG Oral Tablet [Cialis] Cialis 20 MG Cialis 20 MG 07/04/2019 12:00:00 AM EDT 1.0 {tablet} active Ci jenelle 20 MG eCW1 ([facility]) tadalafil 20 MG Oral Tablet [Cialis] Cialis 20 MG Cialis 20 MG 07/04/2019 12:00:00 AM EDT 1.0 {tablet} active Ci jenelle 20 MG eCW1 ([facility]) tadalafil 20 MG Oral Tablet [Cialis] Cialis 20 MG Cialis 20 MG 07/04/2019 12:00:00 AM EDT 1.0 {tablet} active Ci jenelle 20 MG eCW1 ([facility]) tadalafil 20 MG Oral Tablet [Cialis] Cialis 20 MG Cialis 20 MG 07/04/2019 12:00:00 AM EDT 1.0 {tablet} active Ci jenelle 20 MG eCW1 ([facility]) tadalafil 20 MG Oral Tablet [Cialis] Cialis 20 MG Cialis 20 MG 07/04/2019 12:00:00 AM EDT 1.0 {tablet} active Ci jenelle 20 MG eCW1 ([facility]) tadalafil 20 MG Oral Tablet [Cialis] Cialis 20 MG Cialis 20 MG 07/04/2019 12:00:00 AM EDT active 1 tablet eCW1 ([facility]) 1,250 mcg (50,000 unit) 06/07/2019 12:00:00 AM EDT capsule 12 TAKE ONE CAPSULE BY MOUTH ONCE WEEKLY TAKE ONE CAPSULE BY MOUTH ONCE WEEKLY SOLD: 06/07/2019 [facility] Alprazolam 0.25 MG Oral Tablet ALPRAZOLAM 06/07/2019 12:00:00 AM EDT tablet 60 TAKE ONE TO TWO TABLETS BY MOUTH FOUR TI MES A DAY NEEDED MAXIMUM DAILY DOSE = 6 TABLETS TAKE ONE TO TWO TABLETS BY MOUTH FOUR TI MES A DAY NEEDED MAXIMUM DAILY DOSE = 6 TABLETS SOLD: 06/07/2019 [facility] Ergocalciferol 55249 UNT Oral Capsule [Drisdol] Drisdo l 1.25 MG (66498 UT) Drisdol 1.25 MG (08194 UT) 06/06/2019 12:00:00 AM EDT 1.0 {capsule} active Drisdol 1.25 MG (22855 UT) [facility] ([facility]) Ergocalciferol 25716 UNT Oral Capsule [Drisdol] Drisdo l 1.25 MG (95856 UT) Drisdol 1.25 MG (40371 UT) 06/06/2019 12:00:00 AM EDT 1.0 {capsule} active Drisdol 1.25 MG (88192 UT) [facility] ([facility]) Ergocalciferol 57246 UNT Oral Capsule [Drisdol] Drisdo l 1.25 MG (05117 UT) Drisdol 1.25 MG (00366 UT) 06/06/2019 12:00:00 AM EDT 1.0 {capsule} active Drisdol 1.25 MG (91082 UT) [facility] ([facility]) Ergocalciferol 04899 UNT Oral Capsule [Drisdol] Drisdo l 1.25 MG (24106 UT) Drisdol 1.25 MG (90719 UT) 06/06/2019 12:00:00 AM EDT active 1 capsule [facility] ([facility]) Ergocalciferol 47344 UNT Oral Capsule [Drisdol] Drisdo l 1.25 MG (57009 UT) Drisdol 1.25 MG (90811 UT) 06/06/2019 12:00:00 AM EDT 1.0 {capsule} active Drisdol 1.25 MG (26260 UT) eCW1 ([facility]) Ergocalciferol 20011 UNT Oral Capsule [Drisdol] Drisdo l 1.25 MG (22283 UT) Drisdol 1.25 MG (66816 UT) 06/06/2019 12:00:00 AM EDT 1.0 {capsule} active Drisdol 1.25 MG (48731 UT) eCW1 ([facility]) Ergocalciferol 92116 UNT Oral Capsule [Drisdol] Drisdo l 1.25 MG (16177 UT) Drisdol 1.25 MG (20912 UT) 06/06/2019 12:00:00 AM EDT active 1 capsule eCW1 ([facility]) Ergocalciferol 05443 UNT Oral Capsule [Drisdol] Drisdo l 1.25 MG (17872 UT) Drisdol 1.25 MG (24854 UT) 06/06/2019 12:00:00 AM EDT 1.0 {capsule} active Drisdol 1.25 MG (99870 UT) eCW1 ([facility]) Ergocalciferol 98983 UNT Oral Capsule [Drisdol] Drisdo l 1.25 MG (65655 UT) Drisdol 1.25 MG (45041 UT) 06/06/2019 12:00:00 AM EDT 1.0 {capsule} active Drisdol 1.25 MG (53875 UT) eCW ([facility]) 100 mg 05/15/2019 12:00:00 AM EDT tablet 6 TAKE 1 TABLET NEEDED 1 HOUR PRIOR TO INTERCOURSE TAKE 1 TABLET NEEDED 1 HOUR PRIOR TO INTERCOURSE SO LD: 06/29/2019 [facility] Omeprazole 40 MG Delayed Release Oral Capsule Omeprazole 40 MG 05/15/2019 12:00:00 AM EDT active Omeprazo le 40 MG eCW ([facility]) 0.4 mg 05/15/2019 12:00:00 AM EDT capsule 90 TAKE 1 CAPSULE BY MOUTH 30 MINTUTES AFTER THE SAME MEAL ONCE DAILY TAKE 1 CAPSULE BY MOUTH 30 MINTUTES AFTER THE SAME MEAL ONCE DAILY SOLD: 05/15/2019 [facility] Omeprazole 40 MG Delayed Release Oral Capsule Omeprazole 40 MG 05/15/2019 12:00:00 AM EDT active 1 capsul e 30 minutes before morning meal eCW1 ([facility]) Omeprazole 40 MG Delayed Release Oral Capsule Omeprazole 40 MG 05/15/2019 12:00:00 AM EDT active Omeprazo le 40 MG eCW1 ([facility]) Alprazolam 0.25 MG Oral Tablet [Xanax] Xanax 0.25 MG Xanax 0 .25 MG 05/15/2019 12:00:00 AM EDT active Xanax 0. 25 MG eCW1 ([facility]) Alprazolam 0.25 MG Oral Tablet [Xanax] Xanax 0.25 MG Xanax 0 .25 MG 05/15/2019 12:00:00 AM EDT active 1 tablet eCW1 ([facility]) 40 mg 05/15/2019 12:00:00 AM EDT capsule,delayed release (DR/EC) 90 TAKE 1 CAPSULE 30 MINUTES BEFORE MORNING MEAL ONCE DAILY TAKE 1 CAPSULE 30 MINUTES BEFORE MORNING MEAL ONCE DAILY SOLD: 10/09/2019 [email or web address] Omeprazole 40 MG Delayed Release Oral Capsule Omeprazole 40 MG 05/15/2019 12:00:00 AM EDT active 1 capsul e 30 minutes before morning meal eCW1 ([facility]) Alprazolam 0.25 MG Oral Tablet ALPRAZOLAM 05/15/2019 12:00:00 AM EDT tablet 40 TAKE ONE TABLET BY MOUTH FOUR TIMES A DAY NEEDED MA XIMUM DAILY DOSE = 4 TAKE ONE TABLET BY MOUTH FOUR TIMES A DAY NEEDED MAXIMUM DAILY DOSE = 4 SOLD: 05/15/2019 [facility] Alprazolam 0.25 MG Oral Tablet [Xanax] Xanax 0.25 MG Xanax 0 .25 MG 05/15/2019 12:00:00 AM EDT active Xanax 0. 25 MG eCW1 ([facility]) Omeprazole 40 MG Delayed Release Oral Capsule Omeprazole 40 MG 05/15/2019 12:00:00 AM EDT active Omeprazo le 40 MG eCW1 ([facility]) Alprazolam 0.25 MG Oral Tablet [Xanax] Xanax 0.25 MG Xanax 0 .25 MG 05/15/2019 12:00:00 AM EDT active 1-2 tabl et eCW1 ([facility]) Alprazolam 0.25 MG Oral Tablet [Xanax] Xanax 0.25 MG Xanax 0 .25 MG 05/15/2019 12:00:00 AM EDT active 1-2table t eCW1 ([facility]) Alprazolam 0.25 MG Oral Tablet [Xanax] Xanax 0.25 MG Xanax 0 .25 MG 05/15/2019 12:00:00 AM EDT active Xanax 0. 25 MG eCW1 ([facility]) 0.4 mg 05/15/2019 12:00:00 AM EDT capsule 90 TAKE 1 CAPSULE BY MOUTH 30 MINTUTES AFTER THE SAME MEAL ONCE DAILY TAKE 1 CAPSULE BY MOUTH 30 MINTUTES AFTER THE SAME MEAL ONCE DAILY SOLD: 10/09/2019 [facility] Alprazolam 0.25 MG Oral Tablet [Xanax] Xanax 0.25 MG Xanax 0 .25 MG 05/15/2019 12:00:00 AM EDT active 1-2table t eCW1 ([facility]) 100 mg 05/15/2019 12:00:00 AM EDT tablet 6 TAKE 1 TABLET NEEDED 1 HOUR PRIOR TO INTERCOURSE TAKE 1 TABLET NEEDED 1 HOUR PRIOR TO INTERCOURSE SO LD: 05/15/2019 [facility] Alprazolam 0.25 MG Oral Tablet [Xanax] Xanax 0.25 MG Xanax 0 .25 MG 05/15/2019 12:00:00 AM EDT active Xanax 0. 25 MG eCW1 ([facility]) Alprazolam 0.25 MG Oral Tablet [Xanax] Xanax 0.25 MG Xanax 0 .25 MG 05/15/2019 12:00:00 AM EDT active Xanax 0. 25 MG eCW1 ([facility]) Alprazolam 0.25 MG Oral Tablet [Xanax] Xanax 0.25 MG Xanax 0 .25 MG 05/15/2019 12:00:00 AM EDT active Xanax 0. 25 MG eCW1 ([facility]) 40 mg 05/15/2019 12:00:00 AM EDT capsule,delayed release (DR/EC) 90 TAKE 1 CAPSULE 30 MINUTES BEFORE MORNING MEAL ONCE DAILY TAKE 1 CAPSULE 30 MINUTES BEFORE MORNING MEAL ONCE DAILY SOLD: 05/15/2019 [email or web address] Omeprazole 40 MG Delayed Release Oral Capsule Omeprazole 40 MG 05/15/2019 12:00:00 AM EDT active 1 capsul e 30 minutes before morning meal eCW1 ([facility]) Alprazolam 0.25 MG Oral Tablet [Xanax] Xanax 0.25 MG Xanax 0 .25 MG 05/15/2019 12:00:00 AM EDT active Xanax 0. 25 MG eCW1 ([facility]) 100 mg 08/25/2018 12:00:00 AM EDT tablet 6 TAKE 1 TABLET BY MOUTH 1 HOUR BEFORE INTERCOURSE TAKE 1 TABLET BY MOUTH 1 HOUR BEFORE INTERCOURSE SOLD: 02/17/2019 [facility] Insurance Providers Payer name Policy type / Coverage type Policy ID Covered republican ID Covered republican's relationship to saucedo Policy Saucedo Plan Information [place] HUMANA [id number] SP [id number] [facility] [id number] S [id number] HUMANA [facility] [id number] S [id number] [facility] [id number] SP [id number] ANSI-Commercial [id number] ANSI-Commercial [id number] ANSI-Commercial [id number] ANSI-Commercial [id number] ANSI-Commercial [id number] EAST ACTIVE DUTY [id number] SP [id number] ACTIVE DUTY [id number] SP [id number] [employer] [place] O [id number] S [id number] [employer]/ AD P [id number] S [id number] U [id number] Self [id number] N [employer] CLAIMS BUSTER-O/P [id number] 18 [id number] Problems, Conditions, and Diagnoses Code Display Name Description Problem Type Effective Dates Data Source(s) F17.200 [id number] Smoker Problem 01/04/2020 12:00:00 AM ES T eCW1 ([facility]) E78.5 Dyslipidemia Hyperlipidemia, unspecified Problem 05/15/2019 12:00:00 AM EDT eCW1 ([facility]) E78.5 Dyslipidemia Hyperlipidemia, unspecified Problem 05/15/2019 12:00:00 AM EDT eCW1 ([facility]) Surgeries/Procedures Procedure Description Date Indications Data Source(s) PHYSICIAN TELEPHONE EVALUATION 11-20 MIN 06/06/2019 12 :00:00 AM EDT eCW1 ([facility]) Results ID Date Data Source [id number] 04/10/2020 06:20:00 AM EST [facility]SYS[facility] [id number] Name Value Range Interpretation Code Description Data Shoshana rce(s) Supporting Document(s) GLUCOSE 138 mg/dL 74-106 H [facility] BLOOD UREA NITROGEN 14 mg/dL 7-18 [facility] ital CREATININE 1.20 mg/dL 0.7-1.3 [facility] SODIUM 139 mmol/L 136-145 [facility] POTASSIUM 3.9 mmol/L 3.5-5.1 [facility] CHLORIDE 100 mmol/L 98-107 [facility] CO2 30 mmol/L 21-32 [facility] CALCIUM 9.0 mg/dL 8.5-10.1 [facility] ANION GAP 9.0 mmol/L 5-12 [facility] GLOMERULAR FILTRATION RATE 65 mL/min [facility] GFR IS CALCULATED IN mL/min/1.73m2 JUANIS L FUNCTION: >90MILDLY DECREASED: 60-89MILDY TO MODERATELY DECREASED: 45-59 MODERATELY TO SEVERELY DECREASED: 30-44SEVERELY DECREASED: 15-29RENAL FAILURE: <15 AST 10 U/L 15-37 L [facility] ALT 19 U/L 12-78 [facility] ALKALINE PHOSPHATASE 62 U/L 46-116 [facility] TOTAL BILIRUBIN 0.2 mg/dL 0.2-1.0 [facility] TOTAL PROTEIN 7.8 g/dl 6.4-8.2 [facility] ALBUMIN 4.0 gm/dL 3.4-5.0 [facility] ID Date Data Source [id number] 04/10/2020 06:00:00 AM [facility] TSYSORDER [id number] Name Value Range Interpretation Code Description Data Shoshana rce(s) Supporting Document(s) WHITE BLOOD COUNT 9.9 K/mm3 4.0-10.0 [facility] al RED BLOOD COUNT 4.63 M/mm3 4.50-6.00 [facility] HEMOGLOBIN 14.6 gm/dL 14.0-18.0 [facility] HEMATOCRIT 42.9 % 42.0-54.0 [facility] MEAN CELL VOLUME 92.7 fl 80-96 [facility] MEAN CORPUSCULAR HEMOGLOBIN 31.5 pg 27.0-31.0 H [facility] MEAN CORPUSCULAR HGB CONC 34.0 g/dl 32.0-36.0 [facility] RED CELL DISTRIBUTION WIDTH 12.3 % 10.0-14.5 [facility] PLATELET COUNT 319 K/mm3 172-450 [facility] MEAN PLATELET VOLUME 8.3 fl 9.0-13.[address] [facility] pital GRAN % 76.7 % 50-80.0 [facility] IG% 0.1 % 0.0-0.2 [facility] LYMPH % 17.5 % 25.0-50.0 L [facility] MONO % 4.8 % 2.0-10.0 [facility] EOS % 0.7 % 0-5.0 [facility] BASO % 0.2 % 0.0-2.0 [facility] GRAN # 7.6 K/mm3 2.0-8.00 [facility] IG# 0.0 K/mm3 0.0-0.2 [facility] LYMPH # 1.7 K/mm3 1.0-5.0 [facility] MONO # 0.5 K/mm3 0.10-1.20 [facility] EOS # 0.1 K/mm3 0.0-0.5 [facility] BASO # 0.0 K/mm3 0.0-0.2 [facility] ID Date Data Source [id number] 04/10/2020 06:05:00 AM EST [facility]SYSORDER [id number] Name Value Range Interpretation Code Description Data Shoshana rce(s) Supporting Document(s) COVID-19 POSITIVE NEGATIVE [facility] Positive results are indicative of the p resence xyPESO-IyD-3 RNA.Positive results do not rule out bacterial infection orco-infection with other viruses.This is a rapid molecular in vitro diagnostic test utilizingan isothermal nucleic acid amplification technology intendedfor the qualitative detection of nucleic acid from the SARS-CoV-2 viral RNA in direct nasal, nasopharyngeal orthroat swabs from individuals who are suspected of COVID- 19.Results are for the indentification of SARS-CoV-2 RNA. [id number] RNA is generally detectable in respiratorysamples during the actue phase of infection. ID Date Data Source [id number] 07/22/2019 12:00:00 AM EDT [facility] Name Value Range Interpretation Code Description Data Shoshana rce(s) Supporting Document(s) SARS CORONAVIRUS 2 RNA [facility] This lab was ordered by [facility] and reported by [facility]. Procedure Social History Code Duration Value Status Description Data Source(s ) Smoking 01/04/2020 12:00:00 AM EST Current Smoker completed Curre nt Smoker [facility]CW1 [facility] [facility] Smoking 01/04/2020 12:00:00 AM EST Current Smoker completed Curre nt Smoker eCW1 ([facility]) Smoking 01/04/2020 12:00:00 AM EST Current Smoker completed Curre nt Smoker eCW1 ([facility]) Smoking 01/04/2020 12:00:00 AM EST Current Smoker completed Curre nt Smoker eCW1 ([facility]) Smoking 01/04/2020 12:00:00 AM EST Current Smoker completed Curre nt Smoker eCW1 ([facility]) Smoking 07/04/2019 12:00:00 AM EDT Current Smoker completed Curre nt Smoker eCW1 ([facility]) Smoking 07/04/2019 12:00:00 AM EDT Current Smoker completed Curre nt Smoker eCW1 ([facility]) Vital Signs ID Date Data Source UNK Name Value Range Interpretation Code Description Data Source(s) Diastolic blood pressure 75 mm[Hg] 75 mm[Hg] eCW1 ([facility]) Systolic blood pressure 117 mm[Hg] 117 mm[Hg] e CW1 ([facility]) Body temperature 97.8 [degF] 97.8 [degF] eCW1 ( [facility]) Respiratory rate 20 /min 20 /min eCW1 ([facility]) Heart rate 76 /min 76 /min eCW1 ([facility]) Body mass index (BMI) [Ratio] 22.08 kg/m2 22.08 kg/m2 W1 ([facility]) Body height [in_i] eCW1 ([facility]) Body weight 141 [lb_av] 141 [lb_av] eCW1 ([facility]) Diastolic blood pressure 74 mm[Hg] 74 mm[Hg] eCW1 ([facility]) Systolic blood pressure 112 mm[Hg] 112 mm[Hg] e CW1 ([facility]) Body temperature 97.8 [degF] 97.8 [degF] eCW1 ( [facility]) Respiratory rate 20 /min 20 /min eCW1 ([facility]) Heart rate 70 /min 70 /min eCW1 ([facility]) Body mass index (BMI) [Ratio] 21.45 kg/m2 21.45 kg/m2 eCW1 ([facility]) Body height [in_us] eCW1 ([facility]) Body weight Measured 137 [lb_av] 137 [lb_av] eC W1 ([facility]) Body weight 62.257 kg 62.257 kg MEDENT ([facility], ) Body mass index (BMI) [Ratio] 21.5 kg/m2 21.5 k g/m2 [facility] Body weight 137.25 [lb_av] 137.25 [lb_av] MEDEN T ([facility], ) Body height 67 [in_i] 67 [in_i] MEDENT ([facility], ) 5'7" Body temperature 96.0 [degF] 96.0 [degF] MEDENT ([facility]) Diastolic blood pressure 70 mm[Hg] 70 mm[Hg] MEDENT ([facility]) Systolic blood pressure 110 mm[Hg] 110 mm[Hg] M EDENT ([facility]) Diastolic blood pressure 76 mm[Hg] 76 mm[Hg] eCW1 ([facility]) Systolic blood pressure 125 mm[Hg] 125 mm[Hg] e CW1 ([facility]) Body temperature 97.8 [degF] 97.8 [degF] eCW1 ( [facility]) Respiratory rate 20 /min 20 /min eCW1 ([facility]) Heart rate 80 /min 80 /min eCW1 ([facility]) Body mass index (BMI) [Ratio] 21.61 kg/m2 21.61 kg/m2 eCW1 ([facility]) Body height [in_us] eCW1 ([facility]) Body weight Measured 138 [lb_av] 138 [lb_av] eC W1 ([facility]) Patient Treatment Plan of Care Planned Activity Planned Date Details Description Data Source (s) 12 HR Bupropion Hydrochloride 100 MG Extended Release Oral Tablet [Wellbutrin] 01/04/2020 12:00:00 AM EST eCW1 ([facility]) 12 HR Bupropion Hydrochloride 100 MG Extended Release Oral Tablet [Wellbutrin] 01/04/2020 12:00:00 AM EST eCW1 ([facility]) 12 HR Bupropion Hydrochloride 100 MG Extended Release Oral Tablet [Wellbutrin] 01/04/2020 12:00:00 AM EST eCW1 ([facility]) 12 HR Bupropion Hydrochloride 100 MG Extended Release Oral Tablet [Wellbutrin] 01/04/2020 12:00:00 AM EST eCW1 ([facility]) 12 HR Bupropion Hydrochloride 100 MG Extended Release Oral Tablet [Wellbutrin] 01/04/2020 12:00:00 AM EST eCW1 ([facility]) tadalafil 20 MG Oral Tablet [Cialis] 07/04/2019 12:00:00 AM EDT eCW1 ([facility]) tadalafil 20 MG Oral Tablet [Cialis] 07/04/2019 12:00:00 AM EDT eCW1 ([facility]) tadalafil 20 MG Oral Tablet [Cialis] 07/04/2019 12:00:00 AM EDT eCW1 ([facility]) tadalafil 20 MG Oral Tablet [Cialis] 07/04/2019 12:00:00 AM EDT eCW1 ([facility]) tadalafil 20 MG Oral Tablet [Cialis] 07/04/2019 12:00:00 AM EDT eCW1 ([facility]) tadalafil 20 MG Oral Tablet [Cialis] 07/04/2019 12:00:00 AM EDT eCW1 ([facility]) tadalafil 20 MG Oral Tablet [Cialis] 07/04/2019 12:00:00 AM EDT eCW1 ([facility]) tadalafil 20 MG Oral Tablet [Cialis] 07/04/2019 12:00:00 AM EDT eCW1 ([facility]) Ergocalciferol 96323 UNT Oral Capsule [Drisdol] 06/06/2019 12:00:00 AM EDT eCW1 ([facility]) Ergocalciferol 36843 UNT Oral Capsule [Drisdol] 06/06/2019 12:00:00 AM EDT eCW1 ([facility]) Ergocalciferol [id number] UNT Oral Capsule [Drisdol] 06/06/2019 12:00:00 AM EDT eCW1 ([facility]) Ergocalciferol 42659 UNT Oral Capsule [Drisdol] 06/06/2019 12:00:00 AM EDT eCW1 ([facility]) Ergocalciferol 88819 UNT Oral Capsule [Drisdol] 06/06/2019 12:00:00 AM EDT eCW1 ([facility]) Ergocalciferol 54434 UNT Oral Capsule [Drisdol] 06/06/2019 12:00:00 AM EDT eCW1 ([facility]) Ergocalciferol 24923 UNT Oral Capsule [Drisdol] 06/06/2019 12:00:00 AM EDT eCW1 ([facility]) Ergocalciferol 59008 UNT Oral Capsule [Drisdol] 06/06/2019 12:00:00 AM EDT eCW1 ([facility]) Ergocalciferol 40489 UNT Oral Capsule [Drisdol] 06/06/2019 12:00:00 AM EDT eCW1 ([facility]) Alprazolam 0.25 MG Oral Tablet [Xanax] 05/15/2019 12:00:00 AM EDT eCW1 ([facility]) Alprazolam 0.25 MG Oral Tablet [Xanax] 05/15/2019 12:00:00 AM EDT eCW1 ([facility]) Alprazolam 0.25 MG Oral Tablet [Xanax] 05/15/2019 12:00:00 AM EDT eCW1 ([facility]) Alprazolam 0.25 MG Oral Tablet [Xanax] 05/15/2019 12:00:00 AM EDT eCW1 ([facility]) Alprazolam 0.25 MG Oral Tablet [Xanax] 05/15/2019 12:00:00 AM EDT eCW1 ([facility]) Omeprazole 40 MG Delayed Release Oral Capsule 05/15/2019 12:00:00 A M EDT eCW1 ([facility]) Alprazolam 0.25 MG Oral Tablet [Xanax] 05/15/2019 12:00:00 AM EDT eCW1 ([facility]) Omeprazole 40 MG Delayed Release Oral Capsule 05/15/2019 12:00:00 A M EDT eCW1 ([facility]) Omeprazole 40 MG Delayed Release Oral Capsule 05/15/2019 12:00:00 A M EDT eCW1 ([facility]) Alprazolam 0.25 MG Oral Tablet [Xanax] 05/15/2019 12:00:00 AM EDT eCW1 ([facility]) Alprazolam 0.25 MG Oral Tablet [Xanax] 05/15/2019 12:00:00 AM EDT eCW1 ([facility]) Omeprazole 40 MG Delayed Release Oral Capsule 05/15/2019 12:00:00 A M EDT eCW1 ([facility]) Alprazolam 0.25 MG Oral Tablet [Xanax] 05/15/2019 12:00:00 AM EDT eCW1 ([facility]) Omeprazole 40 MG Delayed Release Oral Capsule 05/15/2019 12:00:00 A M EDT eCW1 ([facility]) Alprazolam 0.25 MG Oral Tablet [Xanax] 05/15/2019 12:00:00 AM EDT eCW1 ([facility]) Alprazolam 0.25 MG Oral Tablet [Xanax] 05/15/2019 12:00:00 AM EDT eCW1 ([facility]) Omeprazole 40 MG Delayed Release Oral Capsule 05/15/2019 12:00:00 A M EDT eCW1 ([facility])
[2020-04-10] MEDS ORDERED: PHENYLEPHRINE 10MG/ML 1ML VIAL (J2370 PER 1) IV ONE (08:00)
[2020-04-10 08:38] LABS: BASO % 0.2 % (0.0-1.0); EOS % 0.1 % (0.0-3.0); HEMATOCRIT 43.2 % (42.0-52.0); HEMOGLOBIN 14.3 g/dl (13.5-17.5); LYMPH # 1.1 10^3/uL (1.5-5.0); LYMPH % 9.8 % (24.0-44.0); MEAN CORPUSCULAR HEMOGLOBIN 30.9 pg (27.0-33.0); MEAN CORPUSCULAR HGB CONC 33.1 g/dl (32.0-36.5); MEAN CORPUSCULAR VOLUME 93.3 fl (80.0-96.0); MONO # 0.4 10^3/uL (0.0-0.8); MONO % 3.8 % (0.0-5.0); NEUTROPHILS # 9.6 10^3/uL (1.5-8.5); NEUTROPHILS % 85.6 % (36.0-66.0); PLATELET COUNT, AUTOMATED 339 10^3/uL (150-450); RED BLOOD COUNT 4.63 10^6/uL (4.30-6.10); WHITE BLOOD COUNT 11.3 10^3/uL (4.0-10.0)
[2020-04-10] MEDS ORDERED: CIAL10TA (08:40)
--- OUTSIDE RECORDS SUMMARY | 2020-04-10 08:50 | CCD ---
Author Author [facility] Organization [facility] Address Unknown Phone Unavailable Care Team Providers Care Coagulation Operator Name Role Phone Indra SMITH Unavailable Unavailable Indra SMITH Unavailable Unavailable Indra SMITH Unavailable Unavailable Indra SMITH Unavailable Unavailable Indra SMITH PA Unavailable Unavailable Indra SMITH Unavailable Unavailable Indra SMITH Unavailable Unavailable Indra SMITH PA Unavailable Unavailable Indra SMITH PA Unavailable Unavailable Indra SMITH PA Unavailable Unavailable Indra SMITH PA Unavailable Unavailable DENY, GARCIA PA Unavailable [...] is protected by Article 27-F of the [facility] Public Health law. If you continue you may have access to information: Regarding HIV / AIDS; Provided by facilities licensed or operated by the [facility] Office of Mental Health; or Provided by the [facility] Office for People With Developmental Disabilities. If such information is present, then the following [facility] mandated warning applies: This information has been [...] law may result in a fine or halfway sentence or both. A general authorization for the release of medical or other information is NOT sufficient authorization for further disc losure. Allergies and Adverse Reactions Type Description Substance Reaction Status Data Source(s ) Drug allergy Zoloft Sertraline incrased sadness Active eCW1 ([facility]) Drug allergy Chantix varenicline increased anxiety Active eCW 1 ([facility]) Wellbutrin Wellbutrin Wellbutrin increased anxiety Active eCW1 ( [facility]) Wellbutrin Wellbutrin Wellbutrin increased anxiety Active eCW1 ( [facility]) Wellbutrin Wellbutrin Wellbutrin increased anxiety Active eCW1 ( [facility]) Encounters Encounter Providers Location Date Indications Data Source(s ) Emergency Attender: GARCIA [facility] 04/10/2020 05:59:00 AM EST - 04/10/2020 05:59:00 AM EST [facility] [address] [facility] [address] 03/28/2020 12:00:00 AM EST eCW1 ([facility]) Unknown [address] [facility] [address] 03/28/2020 12:00:00 AM EST eCW1 ([facility]) [place] [address] [address] 03/03/2020 12:00:00 AM EST eCW1 ([facility]) [place] [address] [address] 02/27/2020 12:00:00 AM EST eCW1 ([facility]) Outpatient [address] [facility] [address] 01/04/2020 12:00:00 AM EST eCW1 ([facility]) [place] [address] [facility] [address] 11/20/2019 12:00:00 AM EDT eCW1 ([facility]) [place] [address] [facility] [address] 08/02/2019 12:00:00 AM EDT [facility]CW1 ([facility] [address] [facility] [address] 07/04/2019 12:00:00 AM EDT eCW1 ([facility]) Outpatient Referrer: ANNE-MARIE GARZA 06/09/2019 07:15:00 AM EDT [facility] [address] [facility] [address] 06/06/2019 12:00:00 AM EDT eCW1 ([facility] [address] [facility] [address] 06/06/2019 12:00:00 AM EDT eCW1 ([facility] [address] [facility] [facility] [address] 05/30/2019 12:00:00 AM EDT eCW1 ([facility]) [address] [address] 05/29/2019 12:00:00 AM EDT eCW1 ([facility]) [address] [address] 05/29/2019 12:00:00 AM EDT eCW1 ([facility]) [address] [address] 05/16/2019 12:00:00 AM EDT eCW1 ([facility]) [address] [address] 05/15/2019 12:00:00 AM EDT eCW1 ([facility]) Medications Medication Brand Name Start Date Product [...] active Wellbutr in SR 100 MG eCW1 ([facility]) 20 mg 01/04/2020 12:00:00 AM EST tablet 10 TAKE ONE TABLET BY MOUTH DIRECTED TAKE ONE TABLET BY MOUTH DIRECTED SOLD: 01/05/2020 [facility] 12 HR Bupropion Hydrochloride 100 MG Ext ended Release Oral Tablet [Wellbutrin] Wellbutrin SR 100 MG Wellbutrin SR 100 MG 01/04/2020 12:00:00 AM EST 1.0 {tablet_in_the_morning} active Wellbutr in SR 100 MG eCW1 ([facility]) 12 HR Bupropion Hydrochloride 100 MG Ext ended Release Oral Tablet [Wellbutrin] Wellbutrin SR 100 MG Wellbutrin SR 100 MG 01/04/2020 12:00:00 AM EST 1.0 {tablet_in_the_morning} active Wellbutr in SR 100 MG eCW1 ([facility]) Alprazolam 0.25 MG Oral Tablet [...] active Wellbutr in SR 100 MG eCW1 ([facility]) 12 HR Bupropion Hydrochloride 100 MG Ext ended Release Oral Tablet [Wellbutrin] Wellbutrin SR 100 MG Wellbutrin SR 100 MG 01/04/2020 12:00:00 AM EST 1.0 {tablet_in_the_morning} active Wellbutr in SR 100 MG eCW1 ([facility]) Alprazolam 0.25 MG Oral Tablet ALPRAZOLAM 12/01/2019 12:00:00 AM EDT tablet 80 TAKE ONE TO TWO TABLETS BY MOUTH FOUR TIMES A DAY N EEDED MAX=8TABS/DAY TAKE ONE TO TWO TABLETS BY MOUTH FOUR TIMES A DAY NEEDED MAX=8TABS/DAY SOLD: 12/03/2019 [facility] Alprazolam 0.25 MG Oral Tablet ALPRAZOLAM 08/03/2019 12:00:00 AM EDT tablet 60 TAKE 1-2 TABLETS BY MOUTH FOUR TIMES A D AY NEEDED MAXIMUM DAILY DOSE = 6 TABLETS TAKE 1-2 TABLETS BY MOUTH FOUR TIMES A D AY NEEDED MAXIMUM DAILY DOSE = 6 TABLETS SOLD: 08/04/2019 [facility] 20 mg 07/30/2019 12:00:00 AM EDT tablet 6 TAKE 1 TABLET BY MOUTH DIRECTED TAKE 1 TABLET BY MOUTH DIRECTED SOLD: 10/09/2019 [facility] 20 mg 07/30/2019 12:00:00 AM EDT [...] 1 TABLET BY MOUTH DIRECTED SOLD: 11/02/2019 [facility] 17.5-3.13-1.6 gram 07/19/2019 12:00:00 AM EDT [facility] 354 USE DIRECTED BY PHYSICIAN USE DIRECTED BY PHYSICIAN SOLD: 07/20/2019 [facility] tadalafil 20 MG Oral Tablet [Cialis] Cialis 20 MG Cialis 20 MG 07/04/2019 12:00:00 AM EDT 1.0 {tablet} active Ci jenelle 20 MG eCW1 ([facility]) tadalafil 20 MG Oral Tablet [Cialis] Cialis 20 MG Cialis 20 MG 07/04/2019 12:00:00 AM EDT 1.0 {tablet} active Ci jenelle 20 MG eCW1 ([facility]) tadalafil 20 MG Oral Tablet [Cialis] Cialis 20 MG Cialis 20 MG 07/04/2019 12:00:00 AM EDT 1.0 {tablet} active Ci jenelle 20 MG eCW1 ([facility]) tadalafil 20 MG Oral Tablet [Cialis] Cialis 20 MG Cialis 20 MG 07/04/2019 12:00:00 AM EDT 1.0 {tablet} active Ci jenelle 20 MG eCW1 ([facility]) tadalafil 20 MG Oral Tablet [Cialis] Cialis 20 MG Cialis 20 MG 07/04/2019 12:00:00 AM EDT 1.0 {tablet} active Ci jenelle 20 MG eCW1 ([facility]) tadalafil 20 MG Oral Tablet [Cialis] Cialis 20 MG Cialis 20 MG 07/04/2019 12:00:00 AM EDT 1.0 {tablet} active Ci jenelle 20 MG eCW1 ([facility]) tadalafil 20 MG Oral Tablet [Cialis] Cialis 20 MG Cialis 20 MG 07/04/2019 12:00:00 AM EDT 1.0 {tablet} active Ci jenelle 20 MG eCW1 ([facility]) tadalafil 20 MG Oral Tablet [Cialis] Cialis 20 MG Cialis 20 MG 07/04/2019 12:00:00 AM EDT active 1 tablet eCW1 ([facility]) 1,250 mcg (50,000 unit) 06/07/2019 [...] DOSE = 6 TABLETS SOLD: 06/07/2019 [facility] Ergocalciferol 99011 UNT Oral Capsule [Drisdol] Drisdo l 1.25 MG (63122 UT) Drisdol 1.25 MG (55053 UT) 06/06/2019 12:00:00 AM EDT 1.0 {capsule} active Drisdol 1.25 MG (71354 UT) [facility] ([facility]) Ergocalciferol 23599 UNT Oral Capsule [Drisdol] Drisdo l 1.25 MG (43627 UT) Drisdol 1.25 MG (16301 UT) 06/06/2019 12:00:00 AM EDT 1.0 {capsule} active Drisdol 1.25 MG (27705 UT) [facility] ([facility]) Ergocalciferol 57894 UNT Oral Capsule [Drisdol] Drisdo l 1.25 MG (79354 UT) Drisdol 1.25 MG (00213 UT) 06/06/2019 12:00:00 AM EDT 1.0 {capsule} active Drisdol 1.25 MG (19157 UT) eC ([facility]) Ergocalciferol 96665 UNT Oral Capsule [Drisdol] Drisdo l 1.25 MG (81035 UT) Drisdol 1.25 MG (74126 UT) 06/06/2019 12:00:00 AM EDT active 1 capsule eCW1 ([facility]) Ergocalciferol 14017 UNT Oral Capsule [Drisdol] Drisdo l 1.25 MG (55738 UT) Drisdol 1.25 MG (34808 UT) 06/06/2019 12:00:00 AM EDT 1.0 {capsule} active Drisdol 1.25 MG (99656 UT) eCW1 ([facility]) Ergocalciferol 54574 UNT Oral Capsule [Drisdol] Drisdo l 1.25 MG (99631 UT) Drisdol 1.25 MG (30498 UT) 06/06/2019 12:00:00 AM EDT 1.0 {capsule} active Drisdol 1.25 MG (98840 UT) eCW1 ([facility]) Ergocalciferol 14585 UNT Oral Capsule [Drisdol] Drisdo l 1.25 MG (59880 UT) Drisdol 1.25 MG (05177 UT) 06/06/2019 12:00:00 AM EDT active 1 capsule eCW1 ([facility]) Ergocalciferol 34254 UNT Oral Capsule [Drisdol] Drisdo l 1.25 MG (29549 UT) Drisdol 1.25 MG (14515 UT) 06/06/2019 12:00:00 AM EDT 1.0 {capsule} active Drisdol 1.25 MG (16464 UT) eCW1 ([facility]) Ergocalciferol 96869 UNT Oral Capsule [Drisdol] Drisdo l 1.25 MG (70575 UT) Drisdol 1.25 MG (47505 UT) 06/06/2019 12:00:00 AM EDT 1.0 {capsule} active Drisdol 1.25 MG (19698 UT) eCW1 ([facility]) 100 mg 05/15/2019 12:00:00 AM EDT tablet 6 TAKE 1 TABLET NEEDED 1 HOUR PRIOR TO INTERCOURSE TAKE 1 TABLET NEEDED 1 HOUR PRIOR TO INTERCOURSE SO LD: 06/29/2019 [facility] Omeprazole 40 MG Delayed Release Oral Capsule Omeprazole 40 MG 05/15/2019 12:00:00 AM EDT active Omeprazo le 40 MG eCW1 ([facility]) 0.4 mg 05/15/2019 12:00:00 AM [...] e 30 minutes before morning meal eCW1 ([facility]) Omeprazole 40 MG Delayed Release Oral Capsule Omeprazole 40 MG 05/15/2019 12:00:00 AM EDT active Omeprazo le 40 MG eCW1 ([facility]) Alprazolam 0.25 MG Oral Tablet [Xanax] Xanax 0.25 MG Xanax 0 .25 MG 05/15/2019 12:00:00 AM EDT active Xanax 0. 25 MG eCW1 ([facility]) Alprazolam 0.25 MG Oral Tablet [Xanax] Xanax 0.25 MG Xanax 0 .25 MG 05/15/2019 12:00:00 AM EDT active 1 tablet eCW1 ([facility]) 40 mg 05/15/2019 12:00:00 AM EDT capsule,delayed release (DR/EC) 90 TAKE 1 CAPSULE 30 MINUTES BEFORE MORNING MEAL ONCE DAILY TAKE 1 CAPSULE 30 MINUTES BEFORE MORNING MEAL ONCE DAILY SOLD: 10/09/2019 [facility] Omeprazole 40 MG Delayed Release Oral Capsule Omeprazole 40 MG 05/15/2019 12:00:00 AM EDT active 1 capsul e 30 minutes before morning meal eCW1 ([facility]) Alprazolam 0.25 MG Oral Tablet ALPRAZOLAM 05/15/2019 12:00:00 AM EDT tablet 40 TAKE ONE TABLET BY MOUTH FOUR TIMES A DAY NEEDED MA XIMUM DAILY DOSE = 4 TAKE ONE TABLET BY MOUTH FOUR TIMES A DAY NEEDED MAXIMUM DAILY DOSE = 4 SOLD: 05/15/2019 [facility] Alprazolam 0.25 MG Oral Tablet [Xanax] Xanax 0.25 MG Xanax 0 .25 MG 05/15/2019 12:00:00 AM EDT active Xanax 0. 25 MG eCW1 ([facility]) Omeprazole 40 MG Delayed Release Oral Capsule Omeprazole 40 MG 05/15/2019 12:00:00 AM EDT active Omeprazo le 40 MG eCW1 ([facility]) Alprazolam 0.25 MG Oral Tablet [Xanax] Xanax 0.25 MG Xanax 0 .25 MG 05/15/2019 12:00:00 AM EDT active 1-2 tabl et eCW1 ([facility]) Alprazolam 0.25 MG Oral Tablet [Xanax] Xanax 0.25 MG Xanax 0 .25 MG 05/15/2019 12:00:00 AM EDT active 1-2table t eCW1 ([facility]) Alprazolam 0.25 MG Oral Tablet [Xanax] Xanax 0.25 MG Xanax 0 .25 MG 05/15/2019 12:00:00 AM EDT active Xanax 0. 25 MG eCW1 ([facility]) 0.4 mg 05/15/2019 12:00:00 AM EDT capsule 90 TAKE 1 CAPSULE BY MOUTH 30 MINTUTES AFTER THE SAME MEAL ONCE DAILY TAKE 1 CAPSULE BY MOUTH 30 MINTUTES AFTER THE SAME MEAL ONCE DAILY SOLD: 10/09/2019 [facility] Alprazolam 0.25 MG Oral Tablet [Xanax] Xanax 0.25 MG Xanax 0 .25 MG 05/15/2019 12:00:00 AM EDT active 1-2table t eCW1 ([facility]) 100 mg 05/15/2019 12:00:00 AM EDT tablet 6 TAKE 1 TABLET NEEDED 1 HOUR PRIOR TO INTERCOURSE TAKE 1 TABLET NEEDED 1 HOUR PRIOR TO INTERCOURSE SO LD: 05/15/2019 [facility] Alprazolam 0.25 MG Oral Tablet [Xanax] Xanax 0.25 MG Xanax 0 .25 MG 05/15/2019 12:00:00 AM EDT active Xanax 0. 25 MG eCW1 ([facility]) Alprazolam 0.25 MG Oral Tablet [Xanax] Xanax 0.25 MG Xanax 0 .25 MG 05/15/2019 12:00:00 AM EDT active Xanax 0. 25 MG eCW1 ([facility]) Alprazolam 0.25 MG Oral Tablet [Xanax] Xanax 0.25 MG Xanax 0 .25 MG 05/15/2019 12:00:00 AM EDT active Xanax 0. 25 MG eCW1 ([facility]) 40 mg 05/15/2019 12:00:00 AM EDT capsule,delayed release (DR/EC) 90 TAKE 1 CAPSULE 30 MINUTES BEFORE MORNING MEAL ONCE DAILY TAKE 1 CAPSULE 30 MINUTES BEFORE MORNING MEAL ONCE DAILY SOLD: 05/15/2019 [facility] Omeprazole 40 MG Delayed Release Oral Capsule Omeprazole 40 MG 05/15/2019 12:00:00 AM EDT active 1 capsul e 30 minutes before morning meal eCW1 ([facility]) Alprazolam 0.25 MG Oral Tablet [Xanax] Xanax 0.25 MG Xanax 0 .25 MG 05/15/2019 12:00:00 AM EDT active Xanax 0. 25 MG eCW1 ([facility]) 100 mg 08/25/2018 12:00:00 AM EDT tablet 6 TAKE 1 TABLET BY MOUTH 1 HOUR BEFORE INTERCOURSE TAKE 1 TABLET BY MOUTH 1 HOUR BEFORE INTERCOURSE SOLD: 02/17/2019 [facility] Insurance Providers Payer name Policy type / Coverage type Policy ID Covered constitution party ID Covered constitution party's relationship to saucedo Policy Saucedo Plan Information [facility] HUMANA [id number] SP [id number] [facility] [id number] S [id number] HUMANA [facility] [id number] S [id number] [facility] [id number] SP [id number] ANSI-Commercial [id number] ANSI-Commercial [id number] ANSI-Commercial [id number] ANSI-Commercial [id number] ANSI-Commercial [id number] [place] [employer] [id number] SP [id number] ACTIVE [employer]Y [id number] SP [id number] [employer] [place] O [id number] S [id number] [employer]/ AD P [id number] S [id number] U [id number] Self [id number] N [employer] CLAIMS BUSTER-O/P [id number] 18 [id number] Problems, Conditions, and Diagnoses Code Display Name Description Problem Type Effective Dates Data Source(s) F17.200 [id number] Smoker Problem 01/04/2020 12:00:00 AM ES T eCW1 ([facility]) E78.5 Dyslipidemia Hyperlipidemia, unspecified Problem 05/15/2019 12:00:00 AM EDT eCW1 ([facility]) E78.5 Dyslipidemia Hyperlipidemia, unspecified Problem 05/15/2019 12:00:00 AM EDT eCW1 ([facility]) Surgeries/Procedures Procedure Description Date Indications Data Source(s) PHYSICIAN TELEPHONE EVALUATION 11-20 MIN 06/06/2019 12 :00:00 AM EDT eCW1 ([facility]) Results ID Date Data Source [id number] 04/10/2020 06:20:00 AM EST [facility] TSYS[facility] [id number] Name Value Range Interpretation Code Description Data Shoshana rce(s) Supporting Document(s) GLUCOSE 138 mg/dL 74-106 H [facility] BLOOD UREA NITROGEN 14 mg/dL 7-18 [facility] ital CREATININE 1.20 mg/dL 0.7-1.3 [facility] SODIUM 139 mmol/L 136-145 [facility] POTASSIUM 3.9 mmol/L 3.5-5.1 [facility] CHLORIDE 100 mmol/L 98-107 [facility] CO2 30 mmol/L 21-32 [facility] CALCIUM 9.0 mg/dL 8.5-10.1 [facility] ANION GAP 9.0 mmol/L 5-12 [facility] GLOMERULAR FILTRATION RATE 65 mL/min [facility] GFR IS CALCULATED IN mL/min/1.73m2 JUANIS L FUNCTION: >90MILDLY DECREASED: 60-89MILDY TO MODERATELY DECREASED: 45-59 MODERATELY TO SEVERELY DECREASED: 30-44SEVERELY DECREASED: 15-29RENAL FAILURE: <15 AST 10 U/L 15-37 L [facility] ALT 19 U/L 12-78 [facility] ALKALINE PHOSPHATASE 62 U/L 46-116 [facility] TOTAL BILIRUBIN 0.2 mg/dL 0.2-1.0 [facility] TOTAL PROTEIN 7.8 g/dl 6.4-8.2 [facility] ALBUMIN 4.0 gm/dL 3.4-5.0 [facility] ID Date Data Source [id number] 04/10/2020 06:00:00 AM [facility] TSYSORDER [id number] Name Value Range Interpretation Code Description Data Shoshana rce(s) Supporting Document(s) WHITE BLOOD COUNT 9.9 K/mm3 4.0-10.0 [facility] RED BLOOD COUNT 4.63 M/mm3 4.50-6.00 [facility] HEMOGLOBIN 14.6 gm/dL 14.0-18.0 [facility] HEMATOCRIT 42.9 % 42.0-54.0 [facility] MEAN CELL VOLUME 92.7 fl 80-96 [facility] MEAN CORPUSCULAR HEMOGLOBIN 31.5 pg 27.0-31.[address] [facility] MEAN CORPUSCULAR HGB CONC 34.0 g/dl 32.0-36.0 [facility] RED CELL DISTRIBUTION WIDTH 12.3 % 10.0-14.5 [facility] PLATELET COUNT 319 K/mm3 172-450 [facility] MEAN PLATELET VOLUME 8.3 fl 9.0-13.0 L [facility] pital GRAN % 76.7 % 50-80.0 [facility] IG% 0.1 % 0.0-0.2 [facility] LYMPH % 17.5 % 25.0-50.0 L [facility] MONO % 4.8 % 2.0-10.0 [facility] EOS % 0.7 % 0-5.0 [facility] BASO % 0.2 % 0.0-2.0 [facility] GRAN # 7.6 K/mm3 2.0-8.00 [facility] IG# 0.0 K/mm3 0.0-0.2 [facility] LYMPH # 1.7 K/mm3 1.0-5.0 [facility] MONO # 0.5 K/mm3 0.10-1.20 [facility] EOS # 0.1 K/mm3 0.0-0.5 [facility] BASO # 0.0 K/mm3 0.0-0.2 [facility] ID Date Data Source [id number] 04/10/2020 06:05:00 AM EST [place] [facility] TSYSORDER [id number] Name Value Range Interpretation Code Description Data Shoshana rce(s) Supporting Document(s) COVID-19 POSITIVE NEGATIVE [facility] Positive results are indicative of the p resence [id number]-4 RNA.Positive results do not rule out bacterial infection orco-infection with other viruses.This is a rapid molecular in vitro diagnostic test utilizingan isothermal nucleic acid amplification technology intendedfor the qualitative detection of nucleic acid from the SARS-CoV-2 viral RNA in direct nasal, nasopharyngeal orthroat swabs from individuals who are suspected of COVID- 19.Results are for the indentification of SARS-CoV-2 RNA. [id number] RNA is generally detectable in respiratorysamples during the actue phase of infection. ID Date Data Source [id number] 07/22/2019 12:00:00 AM EDT [facility] Name Value Range Interpretation Code Description Data Shoshana rce(s) Supporting Document(s) SARS CORONAVIRUS 2 RNA [facility] This lab was ordered by [facility] and reported by [facility]. Procedure Social History Code Duration Value Status Description Data Source(s ) Smoking 01/04/2020 12:00:00 AM EST Current Smoker completed Curre nt Smoker eCW1 ([facility]) Smoking 01/04/2020 12:00:00 AM EST Current Smoker completed Curre nt Smoker eCW1 ([facility]) Smoking 01/04/2020 12:00:00 AM EST Current Smoker completed Curre nt Smoker eCW1 ([facility]) Smoking 01/04/2020 12:00:00 AM EST Current Smoker completed Curre nt Smoker eCW1 ([facility]) Smoking 01/04/2020 12:00:00 AM EST Current Smoker completed Curre nt Smoker eCW1 ([facility]) Smoking 07/04/2019 12:00:00 AM EDT Current Smoker completed Curre nt Smoker eCW1 ([facility]) Smoking 07/04/2019 12:00:00 AM EDT Current Smoker completed Curre nt Smoker eCW1 ([facility]) Vital Signs ID Date Data Source [id number] Name Value Range Interpretation Code Description Data Source(s) Diastolic blood pressure 75 mm[Hg] 75 mm[Hg] eCW1 ([facility]) Systolic blood pressure 117 mm[Hg] 117 mm[Hg] e CW1 ([facility]) Body temperature 97.8 [degF] 97.8 [degF] eCW1 ( [facility]) Respiratory rate 20 /min 20 /min eCW1 ([facility]) Heart rate 76 /min 76 /min eCW1 ([facility]) Body mass index (BMI) [Ratio] 22.08 kg/m2 22.08 kg/m2 W1 ([facility]) Body height [in_i] eCW1 ([facility]) Body weight 141 [lb_av] 141 [lb_av] eCW1 ([facility]) Diastolic blood pressure 74 mm[Hg] 74 mm[Hg] eCW1 ([facility]) Systolic blood pressure 112 mm[Hg] 112 mm[Hg] e CW1 ([facility]) Body temperature 97.8 [degF] 97.8 [degF] eCW1 ( [facility]) Respiratory rate 20 /min 20 /min eCW1 ([facility]) Heart rate 70 /min 70 /min eCW1 ([facility]) Body mass index (BMI) [Ratio] 21.45 kg/m2 21.45 kg/m2 eCW1 ([facility]) Body height [in_us] eCW1 ([facility]) Body weight Measured 137 [lb_av] 137 [lb_av] eC W1 ([facility]) Body weight 62.257 kg 62.257 kg [facility] ([facility], ) Body mass index (BMI) [Ratio] 21.5 kg/m2 21.5 k g/m2 [facility], [facility] Body weight 137.25 [lb_av] 137.25 [lb_av] MEDEN T ([facility], ) Body height 67 [in_i] 67 [in_i] MEDENT ([facility], ) 5'7" Body temperature 96.0 [degF] 96.0 [degF] MEDENT ([facility], ) Diastolic blood pressure 70 mm[Hg] 70 mm[Hg] MEDENT ([facility]) Systolic blood pressure 110 mm[Hg] 110 mm[Hg] M EDENT ([facility], ) Diastolic blood pressure 76 mm[Hg] 76 mm[Hg] eCW1 ([facility]) Systolic blood pressure 125 mm[Hg] 125 mm[Hg] e CW1 ([facility]) Body temperature 97.8 [degF] 97.8 [degF] eCW1 ( [facility]) Respiratory rate 20 /min 20 /min eCW1 ([facility]) Heart rate 80 /min 80 /min eCW1 ([facility]) Body mass index (BMI) [Ratio] 21.61 kg/m2 21.61 kg/m2 eCW1 ([facility]) Body height [in_us] eCW1 ([facility]) Body weight Measured 138 [lb_av] 138 [lb_av] eC W1 ([facility]) Patient Treatment Plan of Care Planned Activity Planned Date Details Description Data Source (s) 12 HR Bupropion Hydrochloride 100 MG Extended Release Oral Tablet [Wellbutrin] 01/04/2020 12:00:00 AM EST eCW1 ([facility]) 12 HR Bupropion Hydrochloride 100 MG Extended Release Oral Tablet [Wellbutrin] 01/04/2020 12:00:00 AM EST eCW1 ([facility]) 12 HR Bupropion Hydrochloride 100 MG Extended Release Oral Tablet [Wellbutrin] 01/04/2020 12:00:00 AM EST eCW1 ([facility]) 12 HR Bupropion Hydrochloride 100 MG Extended Release Oral Tablet [Wellbutrin] 01/04/2020 12:00:00 AM EST eCW1 ([facility]) 12 HR Bupropion Hydrochloride 100 MG Extended Release Oral Tablet [Wellbutrin] 01/04/2020 12:00:00 AM EST eCW1 ([facility]) tadalafil 20 MG Oral Tablet [Cialis] 07/04/2019 12:00:00 AM EDT eCW1 ([facility]) tadalafil 20 MG Oral Tablet [Cialis] 07/04/2019 12:00:00 AM EDT eCW1 ([facility]) tadalafil 20 MG Oral Tablet [Cialis] 07/04/2019 12:00:00 AM EDT eCW1 ([facility]) tadalafil 20 MG Oral Tablet [Cialis] 07/04/2019 12:00:00 AM EDT eCW1 ([facility]) tadalafil 20 MG Oral Tablet [Cialis] 07/04/2019 12:00:00 AM EDT eCW1 ([facility]) tadalafil 20 MG Oral Tablet [Cialis] 07/04/2019 12:00:00 AM EDT eCW1 ([facility]) tadalafil 20 MG Oral Tablet [Cialis] 07/04/2019 12:00:00 AM EDT eCW1 ([facility]) tadalafil 20 MG Oral Tablet [Cialis] 07/04/2019 12:00:00 AM EDT eCW1 ([facility]) Ergocalciferol 62891 UNT Oral Capsule [Drisdol] 06/06/2019 12:00:00 AM EDT eCW1 ([facility]) Ergocalciferol 83866 UNT Oral Capsule [Drisdol] 06/06/2019 12:00:00 AM EDT eCW1 ([facility]) Ergocalciferol 34092 UNT Oral Capsule [Drisdol] 06/06/2019 12:00:00 AM EDT eCW1 ([facility]) Ergocalciferol 09614 UNT Oral Capsule [Drisdol] 06/06/2019 12:00:00 AM EDT eCW1 ([facility]) Ergocalciferol 39165 UNT Oral Capsule [Drisdol] 06/06/2019 12:00:00 AM EDT eCW1 ([facility]) Ergocalciferol 43713 UNT Oral Capsule [Drisdol] 06/06/2019 12:00:00 AM EDT eCW1 ([facility]) Ergocalciferol 78569 UNT Oral Capsule [Drisdol] 06/06/2019 12:00:00 AM EDT eCW1 ([facility]) Ergocalciferol 17113 UNT Oral Capsule [Drisdol] 06/06/2019 12:00:00 AM EDT eCW1 ([facility]) Ergocalciferol 16746 UNT Oral Capsule [Drisdol] 06/06/2019 12:00:00 AM EDT eCW1 ([facility]) Alprazolam 0.25 MG Oral Tablet [Xanax] 05/15/2019 12:00:00 AM EDT eCW1 ([facility]) Alprazolam 0.25 MG Oral Tablet [Xanax] 05/15/2019 12:00:00 AM EDT eCW1 ([facility]) Alprazolam 0.25 MG Oral Tablet [Xanax] 05/15/2019 12:00:00 AM EDT eCW1 ([facility]) Alprazolam 0.25 MG Oral Tablet [Xanax] 05/15/2019 12:00:00 AM EDT eCW1 ([facility]) Alprazolam 0.25 MG Oral Tablet [Xanax] 05/15/2019 12:00:00 AM EDT eCW1 ([facility]) Omeprazole 40 MG Delayed Release Oral Capsule 05/15/2019 12:00:00 A M EDT eCW1 ([facility]) Alprazolam 0.25 MG Oral Tablet [Xanax] 05/15/2019 12:00:00 AM EDT eCW1 ([facility]) Omeprazole 40 MG Delayed Release Oral Capsule 05/15/2019 12:00:00 A M EDT eCW1 ([facility]) Omeprazole 40 MG Delayed Release Oral Capsule 05/15/2019 12:00:00 A M EDT eCW1 ([facility]) Alprazolam 0.25 MG Oral Tablet [Xanax] 05/15/2019 12:00:00 AM EDT eCW1 ([facility]) Alprazolam 0.25 MG Oral Tablet [Xanax] 05/15/2019 12:00:00 AM EDT eCW1 ([facility]) Omeprazole 40 MG Delayed Release Oral Capsule 05/15/2019 12:00:00 A M EDT eCW1 ([facility]) Alprazolam 0.25 MG Oral Tablet [Xanax] 05/15/2019 12:00:00 AM EDT eCW1 ([facility]) Omeprazole 40 MG Delayed Release Oral Capsule 05/15/2019 12:00:00 A M EDT eCW1 ([facility]) Alprazolam 0.25 MG Oral Tablet [Xanax] 05/15/2019 12:00:00 AM EDT eCW1 ([facility]) Alprazolam 0.25 MG Oral Tablet [Xanax] 05/15/2019 12:00:00 AM EDT eCW1 ([facility]) Omeprazole 40 MG Delayed Release Oral Capsule 05/15/2019 12:00:00 A M EDT eCW1 ([facility])
[2020-04-10 09:03] LABS: BLOOD UREA NITROGEN 12 MG/DL (7-18); CALCIUM LEVEL 9.1 MG/DL (8.5-10.1); CARBON DIOXIDE LEVEL 27 MEQ/L (21-32); CHLORIDE LEVEL 103 MEQ/L (98-107); CREATININE FOR GFR 1.06 MG/DL (0.70-1.30); GLOMERULAR FILTRATION RATE > 60.0 (>60); GLUCOSE, FASTING 104 MG/DL (70-100); SODIUM LEVEL 139 MEQ/L (136-145)
[2020-04-10 09:30] VITALS: BP 134/86
--- NOTE | 2020-04-10 09:42 | ECGEPIP ---
[facility] - ED Test Date: 2020-04-10 Pat Name: YOANA BOYD Department: Room: - Gender: Male [employer]: ines : 1970 Requested By: ANDREAS Romero Order Number: [id number] Reading MD: Manuel Hernandez Measurements Intervals [place] Rate: 67 P: 34 MA: 131 QRS: 53 QRSD: 89 T: 51 QT: 393 QTc: 417 Interpretive Statements SINUS RHYTHM POOR R WAVE PROGRESSION NSTTW ABNORMALITY(S) NO PRIORS FOR COMPARISON Electronically Signed on 04-10-2020 9:41:58 EST by Manuel Hernandez
== END 2020-04-10 10:22 | disposition home or self-care (01) ==
LOC: M ED 07:35
DX: N48.30 Priapism, unspecified (principal); U07.1 COVID-19; K21.9 Gastro-esophageal reflux disease without esophagitis; N52.9 Male erectile dysfunction, unspecified; Z88.8 Allergy status to other drugs, medicaments and biological substances; Z79.899 Other long term (current) drug therapy; F17.210 Nicotine dependence, cigarettes, uncomplicated; F12.20 Cannabis dependence, uncomplicated
CPT/HCPCS: 36415; 54200; 80048; 85025; 86850; 86900; 86901; 93005; 99284; J2370

== ENCOUNTER → 2020-08-07 | Outpatient (REF) | payer OTHER ==
[~2020-08-07] MED LIST changes: +CIAL10TA
[2020-08-07 11:49] LABS: HEMOGLOBIN 14.5 g/dl (13.5-17.5); MEAN CORPUSCULAR HEMOGLOBIN 31.2 pg (27.0-33.0); MEAN CORPUSCULAR VOLUME 94.6 fl (80.0-96.0); PLATELET COUNT, AUTOMATED 339 10^3/uL (150-450); RED BLOOD COUNT 4.65 10^6/uL (4.30-6.10); WHITE BLOOD COUNT 8.5 10^3/uL (4.0-10.0)
[2020-08-07 13:58] LABS: ALT/SGPT 18 U/L (12-78); BILIRUBIN,TOTAL 0.3 MG/DL (0.2-1.0); BLOOD UREA NITROGEN 16 MG/DL (7-18); CALCIUM LEVEL 8.9 MG/DL (8.5-10.1); CARBON DIOXIDE LEVEL 29 MEQ/L (21-32); CHLORIDE LEVEL 105 MEQ/L (98-107); CHOLESTEROL LEVEL 287 MG/DL (<200); CHOLESTEROL RISK RATIO 7.972 (<5); CREATININE FOR GFR 1.12 MG/DL (0.70-1.30); GLOMERULAR FILTRATION RATE > 60.0 (>60); GLUCOSE, FASTING 93 MG/DL (70-100); HDL CHOLESTEROL 36 MG/DL (>40); LDL CHOLESTEROL 226 MG/DL (<100); NON-HDL-C 251 MG/DL; POTASSIUM SERUM 4.7 MEQ/L (3.5-5.1); SODIUM LEVEL 139 MEQ/L (136-145); TOTAL 25(OH) VITAMIN D 27.9 NG/ML (30.0-100.0); TOTAL PROTEIN 7.6 GM/DL (6.4-8.2); TRIGLYCERIDES LEVEL 124 MG/DL (<150)
== END ==
LOC: M SFHCCLAY 09:19
PROVIDERS: ATTEND Nurse Practitioner Family
DX: K21.9 Gastro-esophageal reflux disease without esophagitis (principal); F32.9 Major depressive disorder, single episode, unspecified; E78.5 Hyperlipidemia, unspecified; E55.9 Vitamin D deficiency, unspecified

== ENCOUNTER 2023-01-06 18:08 | Emergency (ER) | payer OTHER ==
[~2023-01-06] VITALS: Ht 172.7 cm; Wt 65.9 kg
[~2023-01-06 18:08] MED LIST changes: +OMEP40CA4 PO; -OMEP40CA97 PO
[2023-01-06 18:09] VITALS: BP 101/58; TEMP 98.4; O2SAT 97
[2023-01-06] MEDS ORDERED: TETRACAINE 0.5% OPHTH SOLN 4ML OS ONE (20:15)
[2023-01-06] MEDS ORDERED: FLUORESCEIN OPHTH 1MG STRIP OS ONE (20:15)
[2023-01-06] MEDS ORDERED: BOOSTRIX VACCINE (TETANUS/DIPHTH/ACEL. PERTUSSIS) 0.5ML SYR IM ONE (20:35)
[2023-01-06 20:58] LABS: BASO % 0.3 % (0.0-1.0); EOS % 0.4 % (0.0-3.0); HEMATOCRIT 43.9 % (42.0-52.0); HEMOGLOBIN 14.7 g/dl (13.5-17.5); LYMPH # 1.9 10^3/uL (1.5-5.0); LYMPH % 16.5 % (24.0-44.0); MEAN CORPUSCULAR HEMOGLOBIN 31.1 pg (27.0-33.0); MEAN CORPUSCULAR HGB CONC 33.5 g/dl (32.0-36.5); MONO # 0.5 10^3/uL (0.0-0.8); MONO % 4.5 % (2.0-8.0); NEUTROPHILS # 8.8 10^3/uL (1.5-8.5); NEUTROPHILS % 77.9 % (36.0-66.0); PLATELET COUNT, AUTOMATED 315 10^3/uL (150-450); RED BLOOD COUNT 4.72 10^6/uL (4.30-6.10); WHITE BLOOD COUNT 11.3 10^3/uL (4.0-10.0)
== END 2023-01-06 20:44 | disposition left against medical advice (07) ==
LOC: M ED 18:08
DX: S05.92XA Unspecified injury of left eye and orbit, initial encounter (principal); Z53.9 Procedure and treatment not carried out, unspecified reason; W22.8XXA Striking against or struck by other objects, initial encounter; Y92.009 Unspecified place in unspecified non-institutional (private) residence as the place of occurrence of the external cause; Z79.899 Other long term (current) drug therapy; Z88.8 Allergy status to other drugs, medicaments and biological substances